=== PATIENT | female | born 1955 | race Caucasian/White ===

== ENCOUNTER → 2017-04-15 | Outpatient (CLI) | payer OTHER ==
[2017-04-15 13:23] LABS: ALBUMIN 3.5 GM/DL (3.2-5.2); ALBUMIN/GLOBULIN RATIO 1.13 (1.00-1.93); ALKALINE PHOSPHATASE 94 U/L (45-117); ALT/SGPT 79 U/L (12-78); ANION GAP 8 MEQ/L (8-16); AST/SGOT 45 U/L (15-37); BILIRUBIN,TOTAL 0.4 MG/DL (0.2-1.0); BLOOD UREA NITROGEN 18 MG/DL (7-18); CALCIUM LEVEL 9.4 MG/DL (8.8-10.2); CARBON DIOXIDE LEVEL 31 MEQ/L (21-32); CHLORIDE LEVEL 102 MEQ/L (98-107); CHOLESTEROL LEVEL 224 MG/DL (<200); CREATININE FOR GFR 0.97 MG/DL (0.55-1.02); GLOMERULAR FILTRATION RATE > 60.0 (>45); GLUCOSE, FASTING 98 MG/DL (80-110); POTASSIUM SERUM 3.7 MEQ/L (3.5-5.1); SODIUM LEVEL 141 MEQ/L (136-145); TOTAL PROTEIN 6.6 GM/DL (6.4-8.2); TRIGLYCERIDES LEVEL 256 MG/DL (<150)
== END ==
LOC: M WUC 09:38
PROVIDERS: ATTEND Nurse Practitioner Family
DX: E11.9 Type 2 diabetes mellitus without complications (principal); E03.9 Hypothyroidism, unspecified; E78.2 Mixed hyperlipidemia

== ENCOUNTER → 2017-04-22 | Outpatient (REF) | payer OTHER ==
[2017-04-22 16:36] LABS: FERRITIN 37 NG/ML (8-252); GAMMA GLUTAMYLTRANSPEPTIDASE 179 U/L (5-55)
== END ==
LOC: M SFHCPLAZ 14:06
PROVIDERS: ATTEND Nurse Practitioner Family
DX: R79.89 Other specified abnormal findings of blood chemistry (principal)

== ENCOUNTER → 2017-04-28 | Outpatient (CLI) | payer OTHER ==
--- NOTE | 2017-04-28 08:59 | REP ---
Right upper quadrant sonography: History: Elevated LFTs. Findings: Scanning through the right upper quadrant of the abdomen demonstrates a normal sized thin-walled gallbladder without evidence of stone or polyp. Common bile duct is normal measuring 0.7 cm in greatest diameter. The liver is somewhat enlarged measuring 22.8 cm in craniocaudal span in the midclavicular line. Increased echogenicity and decreased insonation suggests fatty infiltration of the liver. No focal liver lesion is seen. Limited views of the pancreas are unremarkable. There is no evidence of ascites. No significant right renal abnormality is seen. The right kidney measures 11.5 x 4.6 x 6.3 cm. Impression: Evidence of fatty infiltration of the liver and mild hepatomegaly. Otherwise negative. Signed by Adrian Carter MD 04/28/2017 09:20 A
== END ==
LOC: M RAD 08:10
PROVIDERS: ATTEND Nurse Practitioner Family
DX: R79.89 Other specified abnormal findings of blood chemistry (principal)

== ENCOUNTER 2017-06-04 09:03 | Outpatient (CLI) | payer OTHER ==
[~2017-06-04] VITALS: Ht 154.9 cm; Wt 106.1 kg
[~2017-06-04 09:03] MED LIST: AMLO5TAB2 PO; ASPI1TAB PO; ATEN100T PO; ATOR1TAB21 PO; CALC600T31 PO; HYDR25TAB PO; INDO50CA PO; LASI40TA PO; LEVO50TA5 PO; LISI40TAB PO; METF10004 PO; MICR10CA PO; MULT1TAB10 PO; TRUL0.5I SC; ZYLO300T4 PO
[2017-06-04] MEDS ORDERED: NS 1,000 ML IV ONE (10:00)
[2017-06-04] MEDS ORDERED: PROPOFOL 200 MG/20 ML VIAL As Ordered ONE (10:18)
--- NOTE | 2017-06-04 10:44 | ROOR ---
Patient Name: Silvia Hermosillo Procedure Date: 06/04/2017 10:13 AM Date of : 1955 Age: 61 Room: [facility] Gender: Female Note Status: Finalized Procedure: Colonoscopy Indications: Screening for colorectal malignant neoplasm Providers: Antonio NI MD Referring MD: Eliza Graham NP Requesting Provider: Medicines: Monitored Anesthesia Care Complications: No immediate complications. Procedure: Pre-Anesthesia Assessment: - The heart rate, respiratory rate, oxygen saturations, blood pressure, adequacy of pulmonary ventilation, and response to care were monitored throughout the procedure. The Colonoscope was introduced through the anus and advanced to the cecum, identified by appendiceal orifice and ileocecal valve. The colonoscopy was performed without difficulty. The patient tolerated the procedure well. The quality of the bowel preparation was good. Findings: The perianal and digital rectal examinations were normal. A 6 mm polyp was found in the splenic flexure. The polyp was sessile. The polyp was removed with a cold snare. Resection and retrieval were complete. A few medium-mouthed diverticula were found in the sigmoid colon. Small Internal Hemorrhoids. The exam was otherwise without abnormality on direct and retroflexion views. Impression: - One 6 mm polyp at the splenic flexure, removed with a cold snare. Resected and retrieved. - Mild diverticulosis in the sigmoid colon. - Small Internal Hemorrhoids. - The colon examination was otherwise normal on direct and retroflexion views. Recommendation: - Repeat colonoscopy in 3 years for surveillance. - Telephone endoscopist for pathology results in 2 weeks. Antonio Ni MD Antonio NI MD 06/04/2017 10:44:27 AM This report has been signed electronically. Number of Addenda: 0 Note Initiated On: 06/04/2017 10:13 AM Estimated Blood Loss: Estimated blood loss: none.
[2017-06-04 11:10] VITALS: BP 134/74
== END 2017-06-04 11:22 | disposition home or self-care (01) ==
LOC: M OPP 09:03
PROVIDERS: ATTEND Internal Medicine Gastroenterology
DX: Z12.11 Encounter for screening for malignant neoplasm of colon (principal); D12.3 Benign neoplasm of transverse colon; K57.30 Diverticulosis of large intestine without perforation or abscess without bleeding; K64.8 Other hemorrhoids; I50.9 Heart failure, unspecified; I11.0 Hypertensive heart disease with heart failure; E78.5 Hyperlipidemia, unspecified; E11.9 Type 2 diabetes mellitus without complications; M10.9 Gout, unspecified; E03.9 Hypothyroidism, unspecified; K76.89 Other specified diseases of liver; M19.90 Unspecified osteoarthritis, unspecified site; Z78.0 Asymptomatic menopausal state; R06.83 Snoring; N18.9 Chronic kidney disease, unspecified; M65.2 Calcific tendinitis; Z79.82 Long term (current) use of aspirin; Z79.899 Other long term (current) drug therapy; Z80.3 Family history of malignant neoplasm of breast

== ENCOUNTER → 2017-06-08 | Outpatient (CLI) | payer OTHER ==
[2017-06-08 14:46] LABS: ALBUMIN 3.4 GM/DL (3.2-5.2); ALKALINE PHOSPHATASE 108 U/L (45-117); ALT/SGPT 54 U/L (12-78); ANION GAP 11 MEQ/L (8-16); AST/SGOT 26 U/L (15-37); BILIRUBIN,TOTAL 0.4 MG/DL (0.2-1.0); BLOOD UREA NITROGEN 24 MG/DL (7-18); CALCIUM LEVEL 8.7 MG/DL (8.8-10.2); CARBON DIOXIDE LEVEL 31 MEQ/L (21-32); CHLORIDE LEVEL 103 MEQ/L (98-107); CHOLESTEROL LEVEL 131 MG/DL (<200); CREATININE FOR GFR 0.96 MG/DL (0.55-1.02); GLOMERULAR FILTRATION RATE > 60.0 (>45); GLUCOSE, FASTING 147 MG/DL (80-110); POTASSIUM SERUM 3.9 MEQ/L (3.5-5.1); SODIUM LEVEL 145 MEQ/L (136-145); TOTAL PROTEIN 6.5 GM/DL (6.4-8.2); TRIGLYCERIDES LEVEL 241 MG/DL (<150)
== END ==
LOC: M WUC 10:20
PROVIDERS: ATTEND Nurse Practitioner Family
DX: E78.2 Mixed hyperlipidemia (principal); R74.8 Abnormal levels of other serum enzymes; E11.9 Type 2 diabetes mellitus without complications

== ENCOUNTER → 2017-06-08 | Outpatient (CLI) | payer OTHER ==
[2017-06-08 13:37] LABS: MEAN CORPUSCULAR HEMOGLOBIN 31.9 pg (27.0-33.0); MEAN CORPUSCULAR HGB CONC 33.9 g/dl (32.0-36.5); MEAN CORPUSCULAR VOLUME 94.1 fl (80.0-96.0); RED CELL DISTRIBUTION WIDTH 14.3 % (11.5-14.5); WHITE BLOOD COUNT 6.2 K/mm3 (4.0-10.0)
[2017-06-08 13:40] LABS: INR 0.93
[2017-06-08 14:13] LABS: ALBUMIN 3.4 GM/DL (3.2-5.2); ALBUMIN/GLOBULIN RATIO 1.13 (1.00-1.93); BILIRUBIN,DIRECT 0.1 MG/DL (0.0-0.2); BILIRUBIN,TOTAL 0.4 MG/DL (0.2-1.0); PERCENT SATURATION 18.7 % (13.2-45.0); TOTAL PROTEIN 6.4 GM/DL (6.4-8.2)
== END ==
LOC: M WUC 10:24
PROVIDERS: ATTEND Physician Assistant Medical
DX: R94.5 Abnormal results of liver function studies (principal)

== ENCOUNTER → 2017-06-09 | Outpatient (REF) | payer OTHER | LOC: M SFHCWAGY 09:39 | PROVIDERS: ATTEND Nurse Practitioner Women's Health | DX: Z12.4 Encounter for screening for malignant neoplasm of cervix (principal) ==

== ENCOUNTER → 2017-06-09 | Outpatient (CLI) | payer OTHER ==
--- NOTE | 2017-06-09 10:08 | REPMRS ---
Patient History The patient states she had a clinical breast exam in 06/18 Patient is postmenopausal. Family history of breast cancer in mother at age 65. Digital Woman Screen Mammo: June 09, 2017 - Exam #: Bilateral CC and MLO view(s) were taken. Technologist: Annie Beauchamp, Technologist Prior study comparison: November 22, 2014, digital woman screen mammo performed at [facility]. October 28, 2013, right breast digital mammo diagnostic unilateral, performed at [facility]. FINDINGS: There are scattered fibroglandular densities. There has been no change in the appearance of the mammogram from the prior studies. There is a mild amount of residual fibroglandular tissue which is fairly symmetric. There is no interval development of dominant mass, architectural distortion, or clustered microcalcification suggestive of malignancy. ASSESSMENT: BI-RADS/ACR category 1 mammogram. Negative. Recommendation Routine screening mammogram in 1 year (for women over age 40). This mammogram was interpreted with the aid of an FDA-approved computer-aided dectection system. Electronically Signed By: Eamon Ryan MD 06/09/17 [id number]
== END ==
LOC: M WHC 08:56
PROVIDERS: ATTEND Nurse Practitioner Family
DX: Z12.31 Encounter for screening mammogram for malignant neoplasm of breast (principal)

== ENCOUNTER → 2017-07-19 | Outpatient (CLI) | payer OTHER ==
[2017-07-19 19:02] LABS: ALBUMIN 3.8 GM/DL (3.2-5.2); ALBUMIN/GLOBULIN RATIO 1.27 (1.00-1.93); ALKALINE PHOSPHATASE 103 U/L (45-117); ALT/SGPT 50 U/L (12-78); ANION GAP 10 MEQ/L (8-16); AST/SGOT 23 U/L (15-37); BILIRUBIN,TOTAL 0.5 MG/DL (0.2-1.0); BLOOD UREA NITROGEN 22 MG/DL (7-18); CALCIUM LEVEL 9.4 MG/DL (8.8-10.2); CARBON DIOXIDE LEVEL 31 MEQ/L (21-32); CHLORIDE LEVEL 102 MEQ/L (98-107); CREATININE FOR GFR 0.98 MG/DL (0.55-1.02); GLOMERULAR FILTRATION RATE > 60.0 (>45); GLUCOSE, FASTING 142 MG/DL (80-110); POTASSIUM SERUM 3.8 MEQ/L (3.5-5.1); SODIUM LEVEL 143 MEQ/L (136-145); TOTAL PROTEIN 6.8 GM/DL (6.4-8.2)
== END ==
LOC: M WUC 10:49
PROVIDERS: ATTEND Nurse Practitioner Family
DX: E11.9 Type 2 diabetes mellitus without complications (principal)

== ENCOUNTER → 2018-06-10 | Outpatient (CLI) | payer OTHER | LOC: M WHC 09:03 | DX: Z12.31 Encounter for screening mammogram for malignant neoplasm of breast (principal) | CPT/HCPCS: 77067 ==

== ENCOUNTER → 2018-06-10 | Outpatient (REF) | payer OTHER ==
[2018-06-12 14:10] LABS: HPV HYBRID CAPTURE II Negative (Negative)
== END ==
LOC: M SFHCWAGY 09:44
DX: Z12.4 Encounter for screening for malignant neoplasm of cervix (principal)

== ENCOUNTER 2019-03-03 12:58 | Inpatient (IN) | payer OTHER ==
[~2019-03-03] VITALS: Ht 154.9 cm; Wt 102.9 kg
[~2019-03-03 12:58] MED LIST changes: -AMLO5TAB2 PO; +AMLO5TAB6 PO; -ASPI1TAB PO; +ASPI81TA26 PO; -INDO50CA PO; +INDO50CA11 PO; -LASI40TA PO; +LASI40TA9 PO; +LISI40TA PO; -LISI40TAB PO; -ZYLO300T4 PO; +ZYLO300T6 PO
[2019-03-03] MEDS ORDERED: PANTOPRAZOLE 40MG INJ (PROTONIX) (C9113) IV ONE (13:15)
[2019-03-03] MEDS ORDERED: GI COCKTAIL 50ML BTL(HYOSCYAMINE/MAALOX/LIDOCAINE VISCOUS)(1:3:1) PO ONE (13:15)
[2019-03-03 13:39] LABS: BASO # 0.1 10^3/uL (0.0-0.2); BASO % 0.5 % (0.0-1.0); EOS % 0.3 % (0.0-3.0); LYMPH % 19.3 % (24.0-44.0); MEAN CORPUSCULAR HEMOGLOBIN 31.4 pg (27.0-33.0); MEAN CORPUSCULAR HGB CONC 32.6 g/dl (32.0-36.5); MEAN CORPUSCULAR VOLUME 96.4 fl (80.0-96.0); MONO # 0.5 10^3/uL (0.0-0.8); MONO % 4.6 % (0.0-5.0); NEUTROPHILS # 7.7 10^3/uL (1.8-7.7); NEUTROPHILS % 74.9 % (36.0-66.0); PLATELET COUNT, AUTOMATED 208 10^3/uL (150-450); RED BLOOD COUNT 4.77 10^6/uL (4.00-5.40); WHITE BLOOD COUNT 10.3 10^3/uL (4.0-10.0)
[2019-03-03 13:49] LABS: PROTHROMBIN TIME 13.3 SECONDS (12.1-14.4)
[2019-03-03 13:50] LABS: PARTIAL THROMBOPLASTIN TIME 28.5 SECONDS (25.4-37.6)
--- NOTE | 2019-03-03 14:01 | REP ---
GALLBLADDER ULTRASOUND: HISTORY: Upper abdominal pain. COMPARISON: 04/28/2017 Sludge is present in the gallbladder. There is no cholelithiasis. The gallbladder wall measures 1.9 mm. The common bile duct measures 6.1 mm. There is fatty infiltration of the liver. The liver is enlarged consistent with hepatomegaly. The pancreas is not seen due to overlying bowel gas. The right kidney measures 5.7 cm in transverse x 4.2 cm in AP x 11.2 cm in cephalocaudal dimensions. There is no hydronephrosis or mass. There is no free fluid. IMPRESSION: 1. Gallbladder sludge. 2. Fatty liver and hepatomegaly. Electronically Signed by Garret Manning MD 03/03/2019 02:04 P
--- NOTE | 2019-03-03 14:07 | REP ---
Chest two views HISTORY: shortness of breath Comparison: 08/02/2012 The lungs are clear. The heart is normal in size. The pulmonary vasculature is normal in appearance. The bony structure is intact. IMPRESSION: No acute disease. Electronically Signed by Garret Manning MD 03/03/2019 01:59 P
[2019-03-03 14:13] LABS: CPK CREATINE PHOSPHOKINASE 123 U/L (26-192); MB/CK RELATIVE INDEX 2.11 (< OR =4); TROPONIN I < 0.02 NG/ML (< 0.10)
[2019-03-03 16:39] LABS: ALBUMIN 4.3 GM/DL (3.2-5.2); BILIRUBIN,DIRECT 0.1 MG/DL (0.0-0.2); BILIRUBIN,TOTAL 0.5 MG/DL (0.2-1.0); CALCIUM LEVEL 12.4 MG/DL (8.8-10.2); CREATININE FOR GFR 1.72 MG/DL (0.55-1.30); POTASSIUM SERUM 7.5 MEQ/L (3.5-5.1); TOTAL PROTEIN 8.9 GM/DL (6.4-8.2)
[2019-03-03] MEDS ORDERED: NS 1,000 ML IV ONE (16:45)
[2019-03-03] MEDS ORDERED: CALCIUM GLUCONATE 1,000 MG in D5W MINI-BAG PLUS 100 ML IV ONE (17:00)
[2019-03-03] MEDS ORDERED: DEXTROSE 50% 50 ML SYRINGE IV STA ×2 (17:10→20:58)
[2019-03-03] MEDS ORDERED: PATIROMER SORBITEX CALCIUM 8.4 GM POWDER PACKET (VELTASSA) PO ONE ×2 (17:15→20:15)
[2019-03-03] MEDS ORDERED: HumuLIN R (REGULAR) INSULIN (NovoLIN R) **100U/ML** PER UNIT IV ONE (17:15)
--- NOTE | 2019-03-03 17:30 | REP ---
CT ABDOMEN AND PELVIS WITHOUT IV CONTRAST: CT abdomen and pelvis performed without oral or IV contrast. Sagittal and coronal reconstruction images are performed. Comparison made with prior CT of 05/14/2015. The visualized lung bases demonstrate no evidence of infiltrate. The liver demonstrates diffuse fatty infiltration. Gallbladder is grossly unremarkable. Spleen and right adrenal are grossly unremarkable. Left adrenal again demonstrates a large fatty mass, well circumscribed, measuring approximately 12.7 cm in maximum diameter. This is essentially stable compared to the prior CT and is most consistent with a myelolipoma. Pancreas and kidneys are grossly unremarkable. There is no hydronephrosis or nephrolithiasis. There is atherosclerotic calcification of the abdominal aorta without aneurysm. There is no adenopathy. There is no free air or free fluid. There is no bowel wall thickening. There is no evidence of appendicitis. No pelvic mass is seen. Urinary bladder is not well distended and not well evaluated. There are degenerative changes of the spine. IMPRESSION: No acute abnormalities. No evidence of appendicitis, free air or free fluid. Large left adrenal myelolipoma is essentially unchanged since the prior exam of 2014. There is a small left inguinal hernia containing fat. Electronically Signed by Eamon Ryan MD 03/04/2019 12:53 P
[2019-03-03] MEDS ORDERED: CALCCAP4 PO (17:34)
[2019-03-03] MEDS ORDERED: ATEN100T PO (17:34)
[2019-03-03] MEDS ORDERED: SPIR50TA4 PO (17:34)
[2019-03-03] MEDS ORDERED: VITMTA PO (17:34)
[2019-03-03] MEDS ORDERED: GABA-843 PO (17:34)
[2019-03-03] MEDS ORDERED: POTA20TA6 PO (17:34)
[2019-03-03] MEDS ORDERED: SODIUM BICARBONATE 150 MEQ in STERILE WATER LITER BAG 1,000 ML IV SCH (18:00)
[2019-03-03 18:22] LABS: ABG BASE EXCESS -11.3 (-2.0-2.0); ABG HCO3 13.8 MEQ/L (22.0-26.0); ABG O2 SATURATION 96.6 % (95.0-99.0); ABG PARTIAL PRESSURE CO2 29.3 mmHg (35.0-45.0); ABG PARTIAL PRESSURE O2 91.8 mmHg (75.0-100.0); ABG STANDARD HCO3 15.7 MEQ/L (22.0-26.0); ABG TOTAL CO2 14.7 MEQ/L (23.0-31.0)
[2019-03-03 19:00] VITALS: BP 128/58
[2019-03-03 19:00] LABS: THYROID STIMULATING HORMONE 2.57 uIU/ML (0.358-3.740)
[2019-03-03 19:02] LABS: CORTISOL BASELINE 14.7 UG/DL (4.3-22.4)
[2019-03-03 19:59] LABS: CALCIUM LEVEL 11.4 MG/DL (8.8-10.2); CREATININE FOR GFR 1.68 MG/DL (0.55-1.30); GLOMERULAR FILTRATION RATE 32.9 (>45); POTASSIUM SERUM 7.2 MEQ/L (3.5-5.1)
[2019-03-03 20:57] LABS: HEMOGLOBIN A1c 6.8 %
[2019-03-03] MEDS ORDERED: ALBUTEROL SULFATE 2.5 MG/0.5 ML INH NEB SOLN NEB ONE (20:58)
[2019-03-03] MEDS ORDERED: HumuLIN R (REGULAR) INSULIN (NovoLIN R) **100U/ML** PER UNIT IV STA (20:58)
[2019-03-03 21:18] LABS: URINE TOTAL PROTEIN < 5.0 MG/DL (0-12)
[2019-03-03] MEDS: ALBUTEROL SULFATE 2.5 MG/0.5 ML INH NEB SOLN NEB SCH ×2 (21:34→21:35)
[2019-03-03] MEDS: GABAPENTIN 300 MG CAP PO SCH (21:53)
[2019-03-03] MEDS: PATIROMER SORBITEX CALCIUM 8.4 GM POWDER PACKET (VELTASSA) PO SCH (21:53)
[2019-03-03] MEDS: ALLOPURINOL 300 MG TAB PO SCH (21:53)
[2019-03-03 22:00] VITALS: BP 120/56
--- NOTE | 2019-03-03 22:19 | ECGEPIP ---
Stationary ECG Study [facility] - ED Test Date: 2019-03-03 Pat Name: BLANCA TARIQ Department: Room: - Gender: F Forensic Nurse: efrem : 1955 Requested By: INOCENCIO Meza Order Number: [id number] Reading MD: Tahmina Billings Measurements Intervals [place]ton Rate: 54 P: -13 MD: 151 QRS: -16 QRSD: 95 T: 33 QT: 389 QTc: 371 Interpretive Statements SINUS BRADYCARDIA PRWP NSTTW ABNORMALITY Electronically Signed On 03-03-2019 22:19:27 EDT by Tahmina Billings
--- NOTE | 2019-03-03 22:23 | HPE ---
DATE OF ADMISSION: 03/03/2019 CHIEF COMPLAINT: Abdominal pain, nausea, diarrhea, muscle weakness. HISTORY OF THE PRESENT ILLNESS: This is a 63-year-old female with a past medical history significant for hypertriglyceridemia, hypertension, morbid obesity, type 2 diabetes, hypothyroidism, congestive heart failure with preserved ejection fraction, mild left atrial enlargement, mild tricuspid regurgitation, gout, chronic kidney disease stage III, chronic hypokalemia, presents to the emergency room after seeing her primary care physician at the office, Marine Ceja at the [facility] with complaints of weakness and abdominal pain. Patient was in her usual state of health until about a week ago when she developed upper respiratory infection with cough, cold symptoms, nasal congestion and runny nose, at which point it progressed to nausea and diarrhea, up to about 10 times daily. She had no fever but had some chills and felt cold, prompting her to see her primary care physician, who advised her that this was a viral infection. Patient has been taking 12 tablets of potassium supplements for the past 1 year. She gets serum potassium checked every 2-3 months, which have been stable, according to her physician. No changes have been made. When she was seen today at her doctor's office, the patient complained of pain at the top of her stomach, which was radiating to her chest, felt like heartburn, which has worsened in the past 2 days, accompanied with some nausea without vomiting and weakness, especially when she has been sitting for about 20 minutes, difficulty ambulating and using her hands to get up from a sitting or lying down position, and requiring assistance from her . Patient was exposed to her brother who had upper respiratory infection (URI) symptoms for the past week. She had a decrease in oral intake due to her upset stomach, felt dizzy and lightheaded without any palpitations. Her provider encouraged her to continue with eating applesauce, soups and peanut butter at home. She continued to take her lisinopril, potassium supplements and Lasix at home. Due to significant weakness and now with complaints of chest pains, the patient was encouraged to come to the emergency room straight from her doctor's office. In the emergency room (ER), she was found to have hyperkalemia with a potassium level of 7.5, hypercalcemia 12, creatinine of 1.7 with baseline creatinine, which is normal at 0.98 from 2017. Patient was afebrile but had normal blood pressure 134 but decreased to 75/43 within 3 hours. Hospitalist was called to admit for hyperkalemia, acute kidney injury, and metabolic acidosis. PAST MEDICAL HISTORY: Hypothyroidism. Obesity. Hyperlipidemia. Type 2 diabetes. Congestive heart failure with preserved ejection fraction. Mild left atrial enlargement. Trace to mild tricuspid regurgitation. Gout. Chronic kidney disease stage III. SURGICAL HISTORY: Tubal ligation in 1993. Colonoscopy in 2017. HOME MEDICATIONS: Please see below. ALLERGIES: No known drug allergies. FAMILY HISTORY: Father , age 63, of heart failure, coronary artery disease and bypass surgery, diabetes and hypertension. Mother alive, age 84, with hypothyroidism, history of breast cancer, in her early 60s, status post hip replacement. Sister had knee problems, hypertension, hyperlipidemia. Brother hypertension and seizure disorder. Another brother is healthy. Son is alive and doing well. SOCIAL HISTORY: Patient was a former smoker. 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 Denies any alcohol use currently or any history of alcohol abuse in the past. REVIEW OF SYSTEMS: Per history of the present illness. Twelve point system otherwise negative. PHYSICAL EXAMINATION: Temperature is 97.4, pulse is sinus 52-67, respiratory rate 17, blood pressure on arrival to the ER was 134/69, current blood pressure is 86/49, at the bedside it is 122 after one liter of IV fluid bolus. General: Patient is awake, alert, oriented times three, able to provide much of the history. She is anicteric. No respiratory distress, able to speak in full sentences. Pupils are round and reactive to light and accommodation. Extraocular muscles are intact. Normocephalic, atraumatic. No jugular venous distention, thyromegaly or cervical lymphadenopathy. Dry mucous membranes. Lungs are diminished but clear to auscultation. There is no wheezing, rales, or rhonchi. Heart: S1, S2, sinus bradycardia. No murmurs, rubs, or gallops. Abdomen: Obese, soft, slightly tender in the epigastric region. No rebound, guarding. Positive bowel sounds times four quadrants. Extremities: No cyanosis, clubbing, or any pitting edema. LABORATORY DATA: White count 10.3, hemoglobin 15, hematocrit 46, platelet count 208. Sodium 138, potassium 7.5, bicarbonate 18, chloride 115, BUN 42, creatinine 1.72, glucose of 139, lactic acid is pending. Calcium is 12.4. Total bilirubin is 0.5, direct bilirubin is 0.1. AST is 34, ALT is 69, alkaline phosphatase of 143. Total protein of 8.9, albumin of 4.3, albumin-globulin ratio of 1.93. Microbiology: Urinalysis is pending. Blood culture is pending. Chest x-ray, 03/03/2019: No acute disease. CT abdomen and pelvis: No acute abnormalities. No evidence of appendicitis. Large left adrenal myolipoma, unchanged from prior exam. Small left inguinal hernia containing fat. Gallbladder ultrasound: Gallbladder sludge and fatty liver and hepatomegaly. ASSESSMENT AND PLAN: Patient will be admitted as an inpatient for two midnights for the following issues: Acute hyperkalemia. Most likely related to continued lisinopril use as well as potassium supplementation. At this time, the patient's lisinopril will be discontinued. She has been given Veltassa q4h as well a sodium bicarbonate drip with every 4 hour metabolic panel, as well as ionized calcium check while the patient is on bicarbonate drip. She has been admitted to the intensive care unit (ICU) for critical patient monitoring and telemetry. Her EKG on admission shows sinus bradycardia, ventricular rate of 54, OK interval of 151, QRS of 95, QT of 389, QTc of 376. Hypercalcemia with renal failure . check PTH, phosphate, vitamin D,SPEP, UPEP, urinary calcium. telemetry monitoring. calcitonin, zolendronate. nephrology consult. CXR was clear. Acute metabolic acidosis in the setting of renal failure and acute kidney injury with a creatinine of 1.72. Patient will be receiving bicarbonate drip and BMP every 4 hours for adjustment of IV fluids. Check urine electrolytes . Hypotension. Patient did arrive with normal blood pressure of 134/69, currently in the 80s systolic. Patient did receive IV fluids, and she was taking Lasix, lisinopril ,beta pushpa as an outpatient prior to coming in with recent history of hypovolemia from diarrhea. Patient had been supplemented with normal saline IV boluses and bicarbonate drip for now. Blood cultures, urinalysis (UA) have been obtained. Chest x-ray has no acute disease. CT abdomen unremarkable . No empiric antibiotics for now. If concerns for adrenal insufficiency were to occur, will continue with IV fluids and determine further workup after that time. Type 2 diabetes . clears diet for now ue to patient complaints of persistent diarrhea, check a gastrointestinal (GI) panel. Subcu sliding scale with coverage with fingersticks before food and nightly. Patient will be monitored in the ICU for now. History of Hypertension. Will hold all antihypertensive medications in light of current low blood pressure. Acute renal failure in the setting of hypovolemia from diarrhea as well as continued lisinopril use, as well as diuretic use. Will replenish patient's fluids at this time. Monitor for any signs of infection. Check UA, chest x-ray. Renally dose all medications and no signs of obstruction on the CT abdomen of the kidneys. Due to hypercalcemia, will r/o multiple myeloma. check upep,spep Obesity. Complicating care. Congestive heart failure (CHF) with preserved ejection fraction. Will monitor patient's respiratory status. Currently with clear lungs and chest x-ray has no acute disease. Abnormal EKG with sinus bradycardia in the setting of severe hypercalcemia and recent use of beta blockers. if persistent, may need glucagon. Telemetry monitoring for now. The patient has borderline prolonged QTc. Will supplement magnesium if low. Deep vein thrombosis (DVT) prophylaxis with compression stockings. Muscle weakness secondary to electrolyte abnormalities and significant metabolic acidosis. correct electrolytes. Physical therapy (PT) will be consulted. CODE STATUS: FULL CODE. MTDD
[2019-03-03 22:43] LABS: TOTAL PROTEIN 7.4 GM/DL (6.4-8.2)
[2019-03-03 22:59] LABS: CALCIUM LEVEL 11.3 MG/DL (8.8-10.2); CREATININE FOR GFR 1.58 MG/DL (0.55-1.30); GLOMERULAR FILTRATION RATE 35.3 (>45)
[2019-03-03] MEDS ORDERED: FLUBLOK(EGG FREE)(QUAD)INFLUENZA VACC 0.5ML SYRINGE (90682)18YRS&OLDER IM PRN (23:15)
[2019-03-04] VITALS (14 sets, daily range): BP systolic 82–131; BP diastolic 51–68
[2019-03-04] MEDS: PATIROMER SORBITEX CALCIUM 8.4 GM POWDER PACKET (VELTASSA) PO SCH (00:35)
[2019-03-04] MEDS ORDERED: SODIUM BICARBONATE 150 MEQ in STERILE WATER LITER BAG 1,000 ML IV SCH (01:00)
[2019-03-04] MEDS ORDERED: PATIROMER SORBITEX CALCIUM 8.4 GM POWDER PACKET (VELTASSA) PO SCH ×2 (02:00→09:00)
[2019-03-04 02:14] LABS: CALCIUM LEVEL 11.6 MG/DL (8.8-10.2); CREATININE FOR GFR 1.6 MG/DL (0.55-1.30); GLOMERULAR FILTRATION RATE 34.8 (>45); POTASSIUM SERUM 5.8 MEQ/L (3.5-5.1)
[2019-03-04] MEDS ORDERED: NS 1,000 ML IV ONE ×2 (05:30→06:30)
[2019-03-04] MEDS: LEVOTHYROXINE 50MCG TABLET (0.05MG) PO SCH (05:58)
[2019-03-04] MEDS ORDERED: ZOLEDRONIC ACID 3 MG in D5W 100 ML IV ONE (06:00)
[2019-03-04 06:03] LABS: HEMATOCRIT 36.1 % (36.0-47.0); MEAN CORPUSCULAR HEMOGLOBIN 31.2 pg (27.0-33.0); MEAN CORPUSCULAR HGB CONC 33.5 g/dl (32.0-36.5); PLATELET COUNT, AUTOMATED 143 10^3/uL (150-450); RED BLOOD COUNT 3.88 10^6/uL (4.00-5.40); WHITE BLOOD COUNT 7.8 10^3/uL (4.0-10.0)
[2019-03-04 06:07] LABS: HEMOGLOBIN 12.1 g/dl (12.0-15.5)
[2019-03-04 06:30] LABS: CALCIUM LEVEL 10.9 MG/DL (8.8-10.2); CREATININE FOR GFR 1.27 MG/DL (0.55-1.30); GLOMERULAR FILTRATION RATE 45.4 (>45); POTASSIUM SERUM 5.2 MEQ/L (3.5-5.1)
[2019-03-04] MEDS ORDERED: MULTIVITAMINS/MINERALS THERAP 1 TAB PO SCH (09:00)
[2019-03-04] MEDS ORDERED: CALCITONIN NASAL SPRAY 3.7 ML BTL SCH (09:00)
[2019-03-04 09:18] LABS: PTH INTACT 9.9 PG/ML (18.5-88.0); TOTAL 25(OH) VITAMIN D 36.3 NG/ML (30.0-100.0)
[2019-03-04] MEDS: ALLOPURINOL 300 MG TAB PO SCH ×2 (09:33→22:25)
[2019-03-04] MEDS: ATORVASTATIN 20 MG TAB PO SCH (09:33)
[2019-03-04 10:23] LABS: CALCIUM LEVEL 9.7 MG/DL (8.8-10.2); CREATININE FOR GFR 1.28 MG/DL (0.55-1.30); POTASSIUM SERUM 4.9 MEQ/L (3.5-5.1)
[2019-03-04 12:39] LABS: CALCIUM LEVEL 9.9 MG/DL (8.8-10.2); CREATININE FOR GFR 1.18 MG/DL (0.55-1.30); GLOMERULAR FILTRATION RATE 49.4 (>45); POTASSIUM SERUM 5.1 MEQ/L (3.5-5.1)
[2019-03-04 13:22] LABS: CREATININE,RANDOM URINE 20.4 MG/DL; POTASSIUM RANDOM URINE 16.9 MEQ/L
--- NOTE | 2019-03-04 14:28 | IPNPDOC ---
Date Seen The patient was seen on 03/04/19. Progress Note SUBJECTIVE: no new c/o. abd pain is resolved. no new issues overnight aside from multiple bowel movements from veltassa. k5.1 this am. strength is improved. calcium increased s/p ivfluids, zolendronate and calcitonin. upep spep pending PHYSICAL EXAMINATION: VITALS PLS SEE BELOW General: Patient is awake, alert, oriented times three, able to provide much of the history. She is anicteric. No respiratory distress, able to speak in full sentences. Pupils are round and reactive to light and accommodation. Extraocular muscles are intact. Normocephalic, atraumatic. No jugular venous distention, thyromegaly or cervical lymphadenopathy. Dry mucous membranes. Lungs are diminished but clear to auscultation. There is no wheezing, rales, or rhonchi. Heart: S1, S2, sinus bradycardia. No murmurs, rubs, or gallops. Abdomen: Obese, soft, slightly tender in the epigastric region. No rebound, guarding. Positive bowel sounds times four quadrants. Extremities: No cyanosis, clubbing, or any pitting edema. LABORATORY DATA ON ADMISSION: White count 10.3, hemoglobin 15, hematocrit 46, platelet count 208. Sodium 138, potassium 7.5, bicarbonate 18, chloride 115, BUN 42, creatinine 1.72, glucose of 139, lactic acid is pending. Calcium is 12.4. Total bilirubin is 0.5, direct bilirubin is 0.1. AST is 34, ALT is 69, alkaline phosphatase of 143. Total protein of 8.9, albumin of 4.3, albumin-globulin ratio of 1.93. PLS SEE BELOW Microbiology: Urinalysis is pending. Blood culture is pending. Chest x-ray, 03/03/2019: No acute disease. CT abdomen and pelvis: No acute abnormalities. No evidence of appendicitis. Large left adrenal myolipoma, unchanged from prior exam. Small left inguinal hernia containing fat. Gallbladder ultrasound: Gallbladder sludge and fatty liver and hepatomegaly. ASSESSMENT AND PLAN: This is a 63-year-old female with a past medical history significant for hypertriglyceridemia, hypertension, morbid obesity, type 2 diabetes, hypothyroidism, congestive heart failure with preserved ejection fraction, mild left atrial enlargement, mild tricuspid regurgitation, gout, chronic kidney disease stage III, chronic hypokalemia, presents to the emergency room after seeing her primary care physician at the office, Marine Ceja at the [facility] with complaints of weakness and abdominal pain. Patient was in her usual state of health until about a week ago when she developed upper respiratory infection with cough, cold symptoms, nasal congestion and runny nos e, at which point it progressed to nausea and diarrhea, up to about 10 times daily. She had no fever but had some chills and felt cold, prompting her to see her primary care physician, who advised her that this was a viral infection. Patient has been taking 12 tablets of potassium supplements for the past 1 year. She gets serum potassium checked every 2-3 months, which have been stable, according to her physician. No changes have been made. When she was seen today at her doctor's office, the patient complained of pain at the top of her stomach, which was radiating to her chest, felt like heartburn, which has worsened in the past 2 days, accompanied with some nausea without vomiting and weakness, especially when she has been sitting for about 20 minutes, difficulty ambulating and using her hands to get up from a sitting or lying down position, and requiring assistance from her . Patient was exposed to her brother who had upper respiratory infection (URI) symptoms for the past week. She had a decrease in oral intake due to her upset stomach, felt dizzy and lightheaded without any palpitations. Her provider encouraged her to continue with eating applesauce, soups and peanut butter at home. She continued to take her lisinopril, potassium supplements and Lasix at home. Due to significant weakness and now with complaints of chest pains, the patient was encouraged to come to the emergency room straight from her doctor's office. In the emergency room (ER), she was found to have hyperkalemia with a potassium level of 7.5, hypercalcemia 12, creatinine of 1.7 with baseline creatinine, which is normal at 0.98 from 2017. Patient was afebrile but had normal blood pressure 134 but decreased to 75/43 within 3 hours. Hospitalist was called to admit for hyperkalemia, acute kidney injury, and metabolic acidosis. Acute hyperkalemia. Most likely related to continued lisinopril use as well as potassium supplementation. At this time, the patient's lisinopril will be discontinued. She has been given Veltassa q4h as well a sodium bicarbonate drip with every 4 hour metabolic panel, as well as ionized calcium check while the patient is on bicarbonate drip. She has been admitted to the intensive care unit (ICU) for critical patient monitoring and telemetry. Her EKG on admission shows sinus bradycardia, ventricular rate of 54, OK interval of 151, QRS of 95, QT of 389, QTc of 376. Hypercalcemia with renal failure . check PTH, phosphate, vitamin D,SPEP, UPEP, urinary calcium. telemetry monitoring. calcitonin, zolendronate. nephrology consult. CXR was clear. Acute metabolic acidosis in the setting of renal failure and acute kidney injury with a creatinine of 1.72. Patient will be receiving bicarbonate drip and BMP every 4 hours for adjustment of IV fluids. Check urine electrolytes . Hypotension. Patient did arrive with normal blood pressure of 134/69, currently in the 80s systolic. Patient did receive IV fluids, and she was taking Lasix, lisinopril ,beta pushpa as an outpatient prior to coming in with recent history of hypovolemia from diarrhea. Patient had been supplemented with normal saline IV boluses and bicarbonate drip for now. Blood cultures, urinalysis (UA) have been obtained. Chest x-ray has no acute disease. CT abdomen unremarkable . No empiric antibiotics for now. If concerns for adrenal insufficiency were to occur, will continue with IV fluids and determine further workup after that time. Type 2 diabetes . clears diet for now ue to patient complaints of persistent diarrhea, check a gastrointestinal (GI) panel. Subcu sliding scale with coverage with fingersticks before food and nightly. Patient will be monitored in the ICU for now. History of Hypertension. Will hold all antihypertensive medications in light ofcurrent low blood pressure. Acute renal failure in the setting of hypovolemia from diarrhea as well as continued lisinopril use, as well as diuretic use. Will replenish patient's fluids at this time. Monitor for any signs of infection. Check UA, chest x-ray. Renally dose all medications and no signs of obstruction on the CT abdomen of the kidneys. Due to hypercalcemia, will r/o multiple myeloma. check upep,spep Obesity. Complicating care. Congestive heart failure (CHF) with preserved ejection fraction. Will monitor patient's respiratory status. Currently with clear lungs and chest x-ray has no acute disease. Abnormal EKG with sinus bradycardia in the setting of severe hypercalcemia and recent use of beta blockers. if persistent, may need glucagon. Telemetry monitoring for now. The patient has borderline prolonged QTc. Will supplement magnesium if low. Deep vein thrombosis (DVT) prophylaxis with compression stockings. Muscle weakness secondary to electrolyte abnormalities and significant metabolic acidosis. correct electrolytes. Physical therapy (PT) will be consulted. CODE STATUS: FULL CODE. DISPOSITION: STABLE FOR MEDSURG TRANSFER. DC IN AM. A-FIB/CHADSVASC A-FIB History Current/History of A-Fib/PAF?: No Current Oral Anticoagulant The: No VS, I&O, 24H, Fishbone Vital Signs/I&O Vital Signs Date Time Temp Pulse Resp B/P (MAP) Pulse Ox O2 Delivery O2 Flow Rate FiO2 03/04/19 12:00 97.4 82 18 113/62 (79) 95 03/03/19 13:11 Room Air I&O- Last 24 Hours up to 6 AM 03/04/19 05:59 Intake Total 2440 ml Output Total 850 ml Balance 1590 ml Laboratory Data 24H LABS Laboratory Tests 2 03/03/19 15:58: Anion Gap 5L, Glomerular Filtration Rate 32.0L, Calcium Level 12.4H, Aspartate Amino Transf (AST/SGOT) 34, Alanine Aminotransferase (ALT/SGPT) 69, Alkaline Phosphatase 143H, Total Bilirubin 0.5, Direct Bilirubin 0.1, Total Protein 8.9H, Albumin 4.3, Albumin/Globulin Ratio 0.93L, Lipase 195 03/03/19 16:51: POC Glucose (Misc Panel) 136H, POC Sodium (Misc Panel) 137, POC Potassium (Misc Panel) 8.5*H, POC Chloride (Misc Panel) 117H, POC Total CO2 (Misc Panel) 18.0L, POC Blood Urea Nitrogen (Misc Panel 41H, POC Ionized Calcium (Misc Panel) 6.6H, POC Creatinine (Misc Panel) 1.7H, POC Hematocrit (Misc Panel) 43.0 03/03/19 18:10: Blood Gas Bicarbonate Standard 15.7L, Arterial Blood pH 7.290L, Arterial Blood Partial Pressure CO2 29.3L, Arterial Blood Partial Pressure O2 91.8, Arterial Blood Total CO2 14.7L, Arterial Blood HCO3 13.8L, Arterial Blood Base Excess - 11.3L, Arterial Blood Oxygen Saturation 96.6 03/03/19 18:23: Anion Gap 4L, Glomerular Filtration Rate 32.9L, Calcium Level 11.4H, Lactic Acid Level 2.4*H, Blood Urea Nitrogen 44H, Creatinine 1.68H, Sodium Level 138, Pota ssium Level 7.2*H, Chloride Level 115H, Carbon Dioxide Level 19L, Thyroid Stimulating Hormone (TSH) 2.570, Cortisol Baseline 14.7 03/03/19 19:02: Bedside Glucose (Misc Panel) 122H 03/03/19 20:16: Urine Color STRAW, Urine Appearance CLEAR, Urine pH 5.0, Urine Specific [place] 1.008, Urine Protein NEGATIVE, Urine Glucose (UA) NEGATIVE, Urine Ketones NEGATIVE, Urine Blood NEGATIVE, Urine Nitrite NEGATIVE, Urine Bilirubin NEGATIVE, Urine Urobilinogen 0.2, Urine Leukocyte Esterase 1+H, Urine WBC (Auto) 5H, Urine RBC (Auto) 0, Urine Hyaline Casts (Auto) 0, Urine Bacteria (Auto) NEGATIVE, Urine Squamous Epithelial Cells 1, Urine Mucus (Auto) SMALL, Urine Sperm (Auto) , Urine Total Protein mg/dL < 5.0 03/03/19 22:01: Anion Gap 4L, Glomerular Filtration Rate 35.3L, Blood Urea Nitrogen 42H, Creatinine 1.58H, Sodium Level 139, Potassium Level 7.0*H, Chloride Level 112H, Carbon Dioxide Level 23, Calcium Level 11.3H, Whole Blood Ionized Calcium 6.0H, Total Protein (PEP) 7.4 03/03/19 22:43: Lactic Acid Followup at 4 Hours 1.8 03/03/19 23:12: Bedside Glucose (Misc Panel) 179H 03/04/19 01:49: Anion Gap 6L, Glomerular Filtration Rate 34.8L, Blood Urea Nitrogen 35H, Creatinine 1.60H, Sodium Level 137, Potassium Level 5.8H, Chloride Level 107, Carbon Dioxide Level 24, Calcium Level 11.6H, Whole Blood Ionized Calcium 5.9H 03/04/19 05:52: Anion Gap 7L, Glomerular Filtration Rate 45.4, Blood Urea Nitrogen 34H, Creatinine 1.27, Sodium Level 136, Potassium Level 5.2H, Chloride Level 105, Carbon Dioxide Level 24, Calcium Level 10.9H, Whole Blood Ionized Calcium 5.6H, Nucleated Red Blood Cells % (auto) 0.0, Phosphorus Level 5.0H, 25-Hydroxy Vitamin D Total 36.3, Parathyroid Hormone (Intact) 9.9L 03/04/19 09:44: Anion Gap 6L, Glomerular Filtration Rate 45.0, Blood Urea Nitrogen 27H, Creatinine 1.28, Sodium Level 139, Potassium Level 4.9, Chloride Level 109H, Carbon Dioxide Level 24, Calcium Level 9.7, Whole Blood Ionized Calcium 5.3 03/04/19 12:02: Anion Gap 8, Glomerular Filtration Rate 49.4, Blood Urea Nitrogen 26H, Creatinine 1.18, Sodium Level 139, Potassium Level 5.1, Chloride Level 110H, Carbon Dioxide Level 21, Calcium Level 9.9, Whole Blood Ionized Calcium 5.2 03/04/19 12:43: Urine Random Creatinine 20.4, Urine Random Sodium 50, Urine Random Potassium 16.9, Urine Random Chloride 61 CBC/BMP Laboratory Tests 03/03/19 15:58 03/03/19 18:23 Calcium Level 11.4 H 03/03/19 22:01 Calcium Level 11.3 H 03/04/19 01:49 Calcium Level 11.6 H 03/04/19 05:52 Red Blood Count 3.88 L, Mean Corpuscular Volume 93.0, Mean Corpuscular Hemoglobin 31.2, Mean Corpuscular Hemoglobin Concent 33.5, Red Cell Distribution Width 13.9, Calcium Level 10.9 H 03/04/19 09:44 Calcium Level 9.7 03/04/19 12:02 Calcium Level 9.9 Microbiology Microbiology 03/03/19 Blood Culture, Received Pending 03/04/19 Gastrointestinal Tract Panel (PCR) - Final, Complete 03/03/19 MRSA Screen, Resulted Pending 03/03/19 Respiratory Virus Panel (PCR) (SOLO) - Final, Resulted 03/03/19 Urine Culture - Final, Complete SVITLANA HUYNH MD March 04, 2019 14:28
--- NOTE | 2019-03-04 14:36 | CR ---
DATE OF CONSULTATION: 03/04/2019 REQUESTING PHYSICIAN: Dr. Andree Cordova. ATTENDING PHYSICIAN: Dr. Pinedo. REASON FOR CONSULTATION: Management of acute renal failure, hyperkalemia and hypercalcemia. CHIEF COMPLAINT: Patient presented to the hospital yesterday with abdominal pain, nausea, vomiting and diarrhea along with muscle weakness. HISTORY OF PRESENT ILLNESS: Silvia Hermosillo is a 63-year-old female with past medical history of hypertension, type 2 diabetes, history of congestive heart failure, apparently has a normal renal function, baseline creatinine of around 0.9 about two years ago in our records. She does not followup with nephrology. She follows up with her primary care at the [facility] ([place]). She presented to the hospital yesterday with a one week history of diarrhea, nausea, vomiting, feeling weak, tired and fatigued. She reports that she possibly had a stomach bug that everybody else is having. She kept on taking all of her medication despite having the diarrhea. On initial triage, the patient was found to be in acute renal failure with a creatinine of 1.7. She was hyperkalemic with a potassium of 7.5. She was in metabolic acidosis and she was also hypercalcemic with a calcium of 12.4 on arrival. Patient was admitted to intensive care unit (ICU) under the hospitalist service. She was started on intravenous (IV) fluid hydration. Nephrotoxic medications are held. Nephrology service was called today with further help in the management of this patient's hyperkalemia and persistent hypercalcemia. I saw and evaluated the patient today morning in the ICU. Patient reports that she is feeling much better today as compared with yesterday. She is beginning to make more urine now. Renal function is slowly improving. Patient reports that she takes 120 mEq of potassium at home because she is always hypokalemic with diuretics that she is receiving. She has never followed up further with nephrology for management of the electrolytes. Patient is currently not on any intravenous (IV) fluid. She was given fluid boluses overnight. PAST MEDICAL HISTORY: 1. Diabetes mellitus type 2. 2. Hypertension. 3. History of heart failure with preserved ejection fraction. 4. Hypothyroidism. 5. Chronic gout. 6. Questionable history of chronic kidney disease stage III; however, in our records her creatinine two years ago was 0.9. PAST SURGICAL HISTORY: 1. History of tubal ligation in 1989. 2. History of colonoscopy. ALLERGIES: No known drug allergies. FAMILY HISTORY: No significant family history of low potassium or periodic paralysis. There is positive family history of hypertension and hyperlipidemia along with diabetes. SOCIAL HISTORY: Patient is retired. She denies any illicit drug abuse, smoking or alcohol abuse. She is living with her . REVIEW OF SYSTEMS: CONSTITUTIONAL: Patient reported weakness and fatigue when she arrived, but she reports that she is feeling better today. She denies any fevers and chills. EYES: She denies any blurry vision, double vision. ENT: She denies any dysphagia or odynophagia. CARDIOVASCULAR: She denies any chest pain or palpitations, but she does report history of lower extremity edema. RESPIRATORY: She denies any shortness of breath. GASTROINTESTINAL (GI): She has nausea, vomiting and diarrhea on arrival which is better now. GENITOURINARY: She denies any dysuria or hematuria. MUSCULOSKELETAL: She denies any muscle weakness at this point. SKIN: She denies any skin rashes or ulcers. PSYCHIATRIC: She denies any depression or anxiety. ENDOCRINE: She reports history of diabetes mellitus and hypothyroidism. HEMATOLOGY/ONCOLOGY: She denies any easy bleeding or bruising. All other review of systems is negative. PHYSICAL EXAMINATION: GENERAL: The patient is awake, alert, oriented times three, laying in bed in no apparent distress. VITAL SIGNS: Temperature is 97.6 degrees Fahrenheit, blood pressure 115/68, pulse is 76, respiratory rate of 20, saturating 95% on room on room air; however, on arrival patient was hypotensive with blood pressures in 70s-80s. HEAD AND NECK EXAM: Extraocular muscles intact. Pupils equally round and reactive to light. Mucous membranes are moist. Neck is supple. There is no jugular venous distention (JVD). CARDIOVASCULAR: S1, S2. Regular rate. No edema of the bilateral lower extremities. RESPIRATORY: Chest is clear to auscultation bilaterally. Bilateral equal air entry. No rales or rhonchi. ABDOMEN: Soft, obese. Positive bowel sounds. Nontender. No organomegaly. MUSCULOSKELETAL: No clubbing or cyanosis. Pulses are 2+. CENTRAL NERVOUS SYSTEM ([employer]): No focal deficit. Power is 5/5 in all extremities. SKIN: No rashes or ulcers. PSYCHIATRIC: Normal mood and affect. LABORATORY REVIEW: Complete blood count (CBC) showed a WBC of 10.3, hemoglobin 15, platelets 208 On arrival INR is 1. Urinalysis done on arrival showed a specific gravity of 1.008, pH of 5, 1+ leukocyte esterase, no protein, no blood. Arterial blood gas (ABG) done on arrival showed a pH of 7.29, pCO2 of 29, pO2 of 91, bicarbonate was 13.8, oxygen saturation was 96%. Basic metabolic panel (BMP) on arrival showed sodium 138, potassium 7.5, chloride 115, bicarbonate 18, BUN 42, creatinine is 1.7, calcium 0.4. A1c 6.8. Lipase 195. TSH 2.5. Cortisol 14.7. Repeat BMP after IV fluid hydration today in the afternoon showed sodium 139, potassium 5.1, chloride 110, bicarbonate 21, BUN 26, creatinine is 1.1 and glucose 145, calcium is 9.9. MICROBIOLOGY: GI panel is negative. Blood and urine cultures are pending. IMAGING STUDIES: CAT scan of the abdomen and pelvis on arrival showed no acute abnormalities. Chest x-ray was done yesterday which showed no acute issues. CURRENT INPATIENT MEDICATIONS: Patient's medications were all reviewed by me. She was given calcium gluconate 1 gram yesterday on arrival because of hyperkalemia. She was given IV normal saline boluses. She was also on sodium bicarbonate drip at 150 mL an hour, which was stopped today morning. She was given a dose of zoledronic acid 3 mg IV times one dose. She was also getting nebulizations. She is on allopurinol 300 mg by mouth twice a day, Lipitor 20 mg by mouth daily. Patient was on calcitonin nasal spray, which I have stopped now. She is on gabapentin 300 mg by mouth daily. She was given GI cocktail today morning. She is on insulin sliding scale. She is on levothyroxine 50 mcg by mouth daily. Protonix 40 mg IV one dose. She was given Veltassa 8.4 grams by mouth, two doses yesterday and two doses today morning. HOME MEDICATIONS: Include: - allopurinol 300 mg by mouth twice a day - amlodipine 5 mg by mouth daily - atenolol 200 mg by mouth twice a day - Lipitor 20 mg daily - calcium carbonate 600 mg once capsule daily - Trulicity 1.5 mg subcutaneous once a week - Lasix 40 mg by mouth daily - gabapentin 300 mg by mouth daily - levothyroxine 50 mcg by mouth daily - lisinopril 80 mg daily - metformin 1 gram by mouth twice a day - multivitamin - potassium chloride 120 mEq by mouth twice a day - spironolactone 50 mg by mouth daily ASSESSMENT: A 63-year-old female with history of diabetes mellitus type 2, hypertension and history of congestive heart failure (CHF) with preserved ejection fraction chronically on angiotensin-converting enzyme (RUTH) inhibitor, metformin, diuretics, potassium and calcium supplements, admitted this time after diarrhea with acute renal failure, hypercalcemia and hypokalemia. PLAN: 1. Acute renal failure. It is most likely secondary to dehydration, volume depletion secondary to diarrhea and use of RUTH inhibitors and diuretics at home. Diuretics were held. Patient was adequately hydrated. Renal function is improving, close to her baseline. 2 Hyperkalemia. It was secondary to use of high-dose potassium, spironolactone and RUTH inhibitors at home. Patient was given a Veltassa yesterday. She was also given IV fluid hydration. Potassium is nicely improved within the normal range. Avoid further use of potassium supplements. Patient does report that she needs high dose of potassium because of chronic hypokalemia. I have ordered the urine electrolytes. She has never seen nephrology before. Renin and aldosterone levels are also pending. 3 History of hypertension. The patient was hypotensive yesterday. RUTH inhibitors and diuretics are obviously on hold because of renal failure. Currently, she is not on any antihypertensives. 4. Metabolic acidoses. Patient came in with metabolic acidosis secondary to acute renal failure, diarrhea and use of metformin. She was given bicarbonate fluids yesterday. Serum bicarbonate level has nicely improved. Bicarbonate fluids have been stopped now. 5. Hypercalcemia. Patient was dehydrated on arrival. She was taking calcium supplements. I do not believe the patient has any malignancy; however, serum and urine protein electrophoresis results are still pending. CT abdomen and pelvis did not did not show any malignancy and chest x-ray was also clear. 6. Diabetes mellitus type 2. Patient takes her metformin and Trulicity at home. I would avoid using metformin at this point since she is recovering from renal failure. Continue insulin sliding scale at this point. 7. Congestive heart failure with preserved ejection fraction. Patient takes atenolol, amlodipine and lisinopril at home. I do not see any evidence of lower extremity edema. Since she actually came in dehydrated, avoid use of diuretics at this point. Low-dose RUTH inhibitor will be restarted once renal function improves back to baseline. Thank you for involving me in the care of this patient. I shall be happy to follow the patient along with you tomorrow morning. Total critical Care time spent 40 minutes excluding procedures. MTDD
[2019-03-04] MEDS ORDERED: SLF 3 ML SYR IV PRN (15:30)
[2019-03-04] MEDS: GABAPENTIN 300 MG CAP PO SCH (17:20)
[2019-03-04 17:21] LABS: CALCIUM,RANDOM URINE 8.8 MG/DL
[2019-03-04 19:01] LABS: CALCIUM LEVEL 9.3 MG/DL (8.8-10.2); CREATININE FOR GFR 1.44 MG/DL (0.55-1.30); GLOMERULAR FILTRATION RATE 39.3 (>45); POTASSIUM SERUM 5.7 MEQ/L (3.5-5.1)
[2019-03-04] MEDS: SLF 3 ML SYR IV SCH (22:25)
[2019-03-04 22:39] LABS: CALCIUM LEVEL 9.6 MG/DL (8.8-10.2); CREATININE FOR GFR 1.35 MG/DL (0.55-1.30); GLOMERULAR FILTRATION RATE 42.3 (>45); POTASSIUM SERUM 5.1 MEQ/L (3.5-5.1)
[2019-03-04] MEDS ORDERED: PATIROMER SORBITEX CALCIUM 8.4 GM POWDER PACKET (VELTASSA) PO ONE (23:00)
[2019-03-05 06:00] VITALS: BP 118/54
[2019-03-05 06:23] LABS: HEMOGLOBIN 11.7 g/dl (12.0-15.5); MEAN CORPUSCULAR HEMOGLOBIN 31.5 pg (27.0-33.0); MEAN CORPUSCULAR HGB CONC 33.4 g/dl (32.0-36.5); MEAN CORPUSCULAR VOLUME 94.1 fl (80.0-96.0); PLATELET COUNT, AUTOMATED 104 10^3/uL (150-450); RED BLOOD COUNT 3.72 10^6/uL (4.00-5.40); WHITE BLOOD COUNT 5.1 10^3/uL (4.0-10.0)
[2019-03-05] MEDS: LEVOTHYROXINE 50MCG TABLET (0.05MG) PO SCH (06:30)
[2019-03-05] MEDS: SLF 3 ML SYR IV SCH (06:31)
[2019-03-05 06:47] LABS: CALCIUM LEVEL 9.4 MG/DL (8.8-10.2); CREATININE FOR GFR 1.21 MG/DL (0.55-1.30); MAGNESIUM LEVEL 1.3 MG/DL (1.8-2.4); POTASSIUM SERUM 4.3 MEQ/L (3.5-5.1)
[2019-03-05] MEDS ORDERED: FLUBLOK(EGG FREE)(QUAD)INFLUENZA VACC 0.5ML SYRINGE (90682)18YRS&OLDER IM ONE (09:00)
--- NOTE | 2019-03-05 09:01 | IPNPDOC ---
Date Seen The patient was seen on 03/05/19. Progress Note SUBJECTIVE: awaiting upep and spep. passed HSE. lytes normalized yesterday. pt's abdominal pain has subsided. she is tolerating her diet well. mg 1.3 supplemented. PHYSICAL EXAMINATION: VITALS PLS SEE BELOW General: Patient is awake, alert, oriented times three, able to provide much of the history. She is anicteric. No respiratory distress, able to speak in full sentences. Pupils are round and reactive to light and accommodation. Extraocular muscles are intact. Normocephalic, atraumatic. No jugular venous distention, thyromegaly or cervical lymphadenopathy. Dry mucous membranes. Lungs are diminished but clear to auscultation. There is no wheezing, rales, or rhonchi. Heart: S1, S2, sinus bradycardia. No murmurs, rubs, or gallops. Abdomen: Obese, soft, nontender No rebound, guarding. Positive bowel sounds times four quadrants. Extremities: No cyanosis, clubbing, or any pitting edema. LABORATORY DATA ON ADMISSION: White count 10.3, hemoglobin 15, hematocrit 46, platelet count 208. Sodium 138, potassium 7.5, bicarbonate 18, chloride 115, BUN 42, creatinine 1.72, glucose of 139, lactic acid is pending. Calcium is 12.4. Total bilirubin is 0.5, direct bilirubin is 0.1. AST is 34, ALT is 69, alkaline phosphatase of 143. Total protein of 8.9, albumin of 4.3, albumin-globulin ratio of 1.93. PLS SEE BELOW Microbiology: Urinalysis is pending. Blood culture is pending. Chest x-ray, 03/03/2019: No acute disease. CT abdomen and pelvis: No acute abnormalities. No evidence of appendicitis. Large left adrenal myolipoma, unchanged from prior exam. Small left inguinal hernia containing fat. Gallbladder ultrasound: Gallbladder sludge and fatty liver and hepatomegaly. ASSESSMENT AND PLAN: This is a 63-year-old female with a past medical history significant for hypertriglyceridemia, hypertension, morbid obesity, type 2 diabetes, hypothyroidism, congestive heart failure with preserved ejection fraction, mild left atrial enlargement, mild tricuspid regurgitation, gout, chronic kidney disease stage III, chronic hypokalemia, presents to the emergency room after seeing her primary care physician at the office, Marine Ceja at the [facility] with complaints of weakness and abdominal pain. Patient was in her usual state of health until about a week ago when she developed upper respiratory infection with cough, cold symptoms, nasal congestion and runny nose, at which point it progressed to nausea and diarrhea, up to about 10 times daily. She had no fever but had some chills and felt cold, prompting her to see her primary care physician, who advised her that this was a viral infection. Patient has been taking 12 tablets of potassium supplements for the past 1 year. She gets serum potassium checked every 2-3 months, which have been stable, according to her physician. No changes have been made. When she was seen today at her doctor's office, the patient complained of pain at the top of her stomach, which was radiating to her chest, felt like heartburn, which has worsened in the past 2 days, accompanied with some nausea without vomiting and weakness, especially when she has been sitting for about 20 minutes, difficulty ambulating and using her hands to get up from a sitting or lying down position, and requiring assistance from her . Patient was exposed to her brother who had upper respiratory infection (URI) symptoms for the past week. She had a decrease in oral intake due to her upset stomach, felt dizzy and lightheaded without any palpitations. Her provider encouraged her to continue with eating applesauce, soups and peanut butter at home. She continued to take her lisinopril, potassium supplements and Lasix at home. Due to significant weakness and now with complaints of chest pains, the patient was encouraged to come to the emergency room straight from her doctor's office. In the emergency room (ER), she was found to have hyperkalemia with a potassium level of 7.5, hypercalcemia 12, creatinine of 1.7 with baseline creatinine, which is normal at 0.98 from 2017. Patient was afebrile but had normal blood pressure 134 but decreased to 75/43 within 3 hours. Hospitalist was called to admit for hyperkalemia, acute kidney injury, and metabolic acidosis. Acute hyperkalemia. Most likely related to continued lisinopril use as well as potassium supplementation. At this time, the patient's lisinopril will be discontinued. She has been given Veltassa q4h as well a sodium bicarbonate drip with every 4 hour metabolic panel, as well as ionized calcium check while the patient is on bicarbonate drip. She has been admitted to the intensive care unit (ICU) for critical patient monitoring and telemetry. Her EKG on admission shows sinus bradycardia, ventricular rate of 54, [place] interval of 151, QRS of 95, QT of 389, QTc of 376. Hypercalcemia with renal failure . check PTH, phosphate, vitamin D,SPEP, UPEP, urinary calcium. telemetry monitoring. calcitonin, zolendronate. nephrology consult. CXR was clear. Acute metabolic acidosis in the setting of renal failure and acute kidney injury with a creatinine of 1.72. Patient will be receiving bicarbonate drip and BMP every 4 hours for adjustment of IV fluids. Check urine electrolytes . Hypotension. Patient did arrive with normal blood pressure of 134/69, currently in the 80s systolic. Patient did receive IV fluids, and she was taking Lasix, lisinopril ,beta pushpa as an outpatient prior to coming in with recent history of hypovolemia from diarrhea. Patient had been supplemented with normal saline IV boluses and bicarbonate drip for now. Blood cultures, urinalysis (UA) have been obtained. Chest x-ray has no acute disease. CT abdomen unremarkable . No empiric antibiotics for now. If concerns for adrenal insufficiency were to occur, will continue with IV fluids and determine further workup after that time. Type 2 diabetes . clears diet for now ue to patient complaints of persistent diarrhea, check a gastrointestinal (GI) panel. Subcu sliding scale with coverage with fingersticks before food and nightly. Patient will be monitored in the ICU for now. History of Hypertension. Will hold all antihypertensive medications in light ofcurrent low blood pressure. Acute renal failure in the setting of hypovolemia from diarrhea as well as continued lisinopril use, as well as diuretic use. Will replenish patient's fluids at this time. Monitor for any signs of infection. Check UA, chest x-ray. Renally dose all medications and no signs of obstruction on the CT abdomen of the kidneys. Due to hypercalcemia, will r/o multiple myeloma. check upep,spep Obesity. Complicating care. Congestive heart failure (CHF) with preserved ejection fraction. Will monitor patient's respiratory status. Currently with clear lungs and chest x-ray has no acute disease. Abnormal EKG with sinus bradycardia in the setting of severe hypercalcemia and recent use of beta blockers. if persistent, may need glucagon. Telemetry monitoring for now. The patient has borderline prolonged QTc. Will supplement magnesium if low. Deep vein thrombosis (DVT) prophylaxis with compression stockings. Muscle weakness secondary to electrolyte abnormalities and significant metabolic acidosis. correct electrolytes. Physical therapy (PT) will be consulted. CODE STATUS: FULL CODE. disposition : dc home today if cleared by nephrology. A-FIB/CHADSVASC A-FIB History Current/History of A-Fib/PAF?: No Current Oral Anticoagulant The: No VS, I&O, 24H, Fishbone Vital Signs/I&O Vital Signs Date Time Temp Pulse Resp B/P (MAP) Pulse Ox O2 Delivery O2 Flow Rate FiO2 03/04/19 22:00 98.1 98 15 131/58 (82) 94 03/03/19 13:11 Room Air I&O- Last 24 Hours up to 6 AM 03/05/19 06:00 Intake Total 2804 ml Output Total 1800 ml Balance 1004 ml Laboratory Data 24H LABS Laboratory Tests 2 03/04/19 09:44: Anion Gap 6L, Glomerular Filtration Rate 45.0, Blood Urea Nitrogen 27H, Creatinine 1.28, Sodium Level 139, Potassium Level 4.9, Chloride Level 109H, Carbon Dioxide Level 24, Calcium Level 9.7, Whole Blood Ionized Calcium 5.3 03/04/19 12:02: Anion Gap 8, Glomerular Filtration Rate 49.4, Blood Urea Nitrogen 26H, Creatinine 1.18, Sodium Level 139, Potassium Level 5.1, Chloride Level 110H, Carbon Dioxide Level 21, Calcium Level 9.9, Whole Blood Ionized Calcium 5.2 03/04/19 12:43: Urine Random Creatinine 20.4, Urine Random Sodium 50, Urine Random Potassium 16.9, Urine Random Chloride 61, Urine Random Calcium 8.8 03/04/19 18:14: Anion Gap 4L, Glomerular Filtration Rate 39.3L, Blood Urea Nitrogen 30H, Creatinine 1.44H, Sodium Level 136, Potassium Level 5.7H, Chloride Level 108H, Carbon Dioxide Level 24, Calcium Level 9.3, Whole Blood Ionized Calcium 5.0 03/04/19 22:06: Anion Gap 7L, Glomerular Filtration Rate 42.3L, Blood Urea Nitrogen 26H, Creatinine 1.35H, Sodium Level 139, Potassium Level 5.1, Chloride Level 110H, Carbon Dioxide Level 22, Calcium Level 9.6 03/04/19 22:27: Bedside Glucose (Misc Panel) 159H 03/05/19 06:00: CBC/BMP Laboratory Tests 03/04/19 09:44 Calcium Level 9.7 03/04/19 12:02 Calcium Level 9.9 03/04/19 18:14 Calcium Level 9.3 03/04/19 22:06 Calcium Level 9.6 Microbiology Microbiology 03/03/19 Blood Culture - Preliminary, Resulted No growth after 24 hours . All specim... 03/04/19 Gastrointestinal Tract Panel (PCR) - Final, Complete 03/03/19 MRSA Screen - Final, Complete Staph.aureus Methicillin Resis 03/03/19 Respiratory Virus Panel (PCR) ([facility]) - Final, Complete 03/03/19 Urine Culture - Final, Complete SVITLANA HUYNH MD March 05, 2019 06:18
--- NOTE | 2019-03-05 09:05 | DS.PDOC ---
Discharge Summary General Date of Admission March 03, 2019 at 17:14 Date of Discharge 2018 Discharge Summary CONSULTANTS: NEPHROLOGY DR. ALVARADO DISCHARGE DIAGNOSES: HYPERKALEMIA HYPERCALCEMIA ACUTE RENAL FAILURE HYPOMAGNESEMIA HTN HYPERTRIGLYCERIDEMIA MORBID OBESITY TYPE 2 DM HYPOTHYROIDISM CHF W PRESERVED EF MILD TR GOUT CKD3 HISTORY OF CHRONIC HYPOKALEMIA HYPOTENSION DUE TO MEDS AND DEHYDRATION HYPOVOLEMIA DUE TO DEHYDRATION AND DECREASED ORAL INTAKE H/O DIARRHEA AT HOME DISCHARGE MEDS: PLEASE SEE BELOW DISCHARGE INSTRUCTIONS: REPEAT MP,MG, IONIZED CALCIUM AND CALL/FAX RESULTS TO PRESSURE [employer]PERATOR DR. JENNY FLORES W DR ALVARADO , [facility] TEST [facility]PERATOR WITHIN 5 DAYS OF DISCHARGE FU W PCP W/I 5 DAYS OF DISCHARGE HISTORY OF PRESENTING ILLNESS: This is a 63-year-old female with a past medical history significant for hypertriglyceridemia, hypertension, morbid obesity, type 2 diabetes, hypothyroidism, congestive heart failure with preserved ejection fraction, mild left atrial enlargement, mild tricuspid regurgitation, gout, chronic kidney disease stage III, chronic hypokalemia, presents to the emergency room after seeing her primary care physician at the office, Marine Ceja at the [facility] with complaints of weakness and abdominal pain. Patient was in her usual state of health until about a week ago when she developed upper respiratory infection with cough, cold symptoms, nasal congestion and runny nose, at which point it progressed to nausea and diarrhea, up to about 10 times daily. She had no fever but had some chills and felt cold, prompting her to see her primary care physician, who advised her that this was a viral infection. Patient has been taking 12 tablets of potassium supplements for the past 1 year. She gets serum potassium checked every 2-3 months, which have been stable, according to her physician. No changes have been made. When she was seen today at her doc tor's office, the patient complained of pain at the top of her stomach, which was radiating to her chest, felt like heartburn, which has worsened in the past 2 days, accompanied with some nausea without vomiting and weakness, especially when she has been sitting for about 20 minutes, difficulty ambulating and using her hands to get up from a sitting or lying down position, and requiring assistance from her . Patient was exposed to her brother who had upper respiratory infection (URI) symptoms for the past week. She had a decrease in oral intake due to her upset stomach, felt dizzy and lightheaded without any palpitations. Her provider encouraged her to continue with eating applesauce, soups and peanut butter at home. She continued to take her lisinopril, potassium supplements and Lasix at home. Due to significant weakness and now with complaints of chest pains, the patient was encouraged to come to the emergency room straight from her doctor's office. In the emergency room (ER), she was found to have hyperkalemia with a potassium level of 7.5, hypercalcemia 12, creatinine of 1.7 with baseline creatinine, which is normal at 0.98 from 2017. Patient was afebrile but had normal blood pressure 134 but decreased to 75/43 within 3 hours. Hospitalist was called to admit for hyperkalemia, acute kidney injury, and metabolic acidosis. HOSPITAL COURSE: Acute hyperkalemia. Most likely related to continued lisinopril use as well as potassium supplementation. At this time, the patient's lisinopril will be discontinued. She has been given Veltassa q4h as well a sodium bicarbonate drip with every 4 hour metabolic panel, as well as ionized calcium check while the patient is on bicarbonate drip. She has been admitted to the intensive care unit (ICU) for critical patient monitoring and telemetry. Her EKG on admission shows sinus bradycardia, ventricular rate of 54, [place] interval of 151, QRS of 95, QT of 389, QTc of 376. Hypercalcemia with renal failure . check PTH, phosphate, vitamin D,SPEP, UPEP, urinary calcium. telemetry monitoring. calcitonin, zolendronate. nephrology consult. CXR was clear. Acute metabolic acidosis in the setting of renal failure and acute kidney injury with a creatinine of 1.72. Patient will be receiving bicarbonate drip and BMP every 4 hours for adjustment of IV fluids. Check urine electrolytes . Hypotension. Patient did arrive with normal blood pressure of 134/69, currently in the 80s systolic. Patient did receive IV fluids, and she was taking Lasix, lisinopril ,beta pushpa as an outpatient prior to coming in with recent history of hypovolemia from diarrhea. Patient had been supplemented with normal saline IV boluses and bicarbonate drip for now. Blood cultures, urinalysis (UA) have been obtained. Chest x-ray has no acute disease. CT abdomen unremarkable . No empiric antibiotics for now. If concerns for adrenal insufficiency were to occur, will continue with IV fluids and determine further workup after that time. Type 2 diabetes . clears diet for now ue to patient complaints of persistent diarrhea, check a gastrointestinal (GI) panel. Subcu sliding scale with coverage with fingersticks before food and nightly. Patient will be monitored in the ICU for now. History of Hypertension. Will hold all antihypertensive medications in light ofcurrent low blood pressure. Acute renal failure in the setting of hypovolemia from diarrhea as well as continued lisinopril use, as well as diuretic use. Will replenish patient's fluids at this time. Monitor for any signs of infection. Check UA, chest x-ray. Renally dose all medications and no signs of obstruction on the CT abdomen of the kidneys. Due to hypercalcemia, will r/o multiple myeloma. check upep,spep Obesity. Complicating care. Congestive heart failure (CHF) with preserved ejection fraction. Will monitor patient's respiratory status. Currently with clear lungs and chest x-ray has no acute disease. Abnormal EKG with sinus bradycardia in the setting of severe hypercalcemia and recent use of beta blockers. if persistent, may need glucagon. Telemetry monitoring for now. The patient has borderline prolonged QTc. Will supplement magnesium if low. Deep vein thrombosis (DVT) prophylaxis with compression stockings. Muscle weakness secondary to electrolyte abnormalities and significant metabolic acidosis. correct electrolytes. Physical therapy (PT) will be consulted. CODE STATUS: FULL CODE. disposition : in home today if cleared by nephrology. PHYSICAL EXAMINATION: VITALS PLS SEE BELOW General: Patient is awake, alert, oriented times three, able to provide much of the history. She is anicteric. No respiratory distress, able to speak in full sentences. Pupils are round and reactive to light and accommodation. Extraocular muscles are intact. Normocephalic, atraumatic. No jugular venous distention, thyromegaly or cervical lymphadenopathy. Dry mucous membranes. Lungs are diminished but clear to auscultation. There is no wheezing, rales, or rhonchi. Heart: S1, S2, sinus bradycardia. No murmurs, rubs, or gallops. Abdomen: Obese, soft, nontender No rebound, guarding. Positive bowel sounds times four quadrants. Extremities: No cyanosis, clubbing, or any pitting edema. LABORATORY DATA ON ADMISSION: White count 10.3, hemoglobin 15, hematocrit 46, platelet count 208. Sodium 138, potassium 7.5, bicarbonate 18, chloride 115, BUN 42, creatinine 1.72, glucose of 139, lactic acid is pending. Calcium is 12.4. Total bilirubin is 0.5, direct bilirubin is 0.1. AST is 34, ALT is 69, alkaline phosphatase of 143. Total protein of 8.9, albumin of 4.3, albumin-globulin ratio of 1.93. LABS ON DISCHARGE: PLS SEE BELOW Microbiology: Urinalysis is pending. Blood culture is pending. Chest x-ray, 03/03/2019: No acute disease. CT abdomen and pelvis: No acute abnormalities. No evidence of appendicitis. Large left adrenal myolipoma, unchanged from prior exam. Small left inguinal hernia containing fat. Gallbladder ultrasound: Gallbladder sludge and fatty liver and hepatomegaly. TIME SPENT ON DISCHARGE: 30 MIN Vital Signs/I&Os Vital Signs Date Time Temp Pulse Resp B/P (MAP) Pulse Ox O2 Delivery O2 Flow Rate FiO2 03/05/19 06:00 98.2 102 18 118/54 (75) 92 03/03/19 13:11 Room Air I&O- Last 24 Hours up to 6 AM 03/05/19 06:00 Intake Total 2804 ml Output Total 2600 ml Balance 204 ml Laboratory Data Labs 24H Laboratory Tests 2 03/04/19 09:44: Anion Gap 6L, Glomerular Filtration Rate 45.0, Blood Urea Nitrogen 27H, Creatinine 1.28, Sodium Level 139, Potassium Level 4.9, Chloride Level 109H, Carbon Dioxide Level 24, Calcium Level 9.7, Whole Blood Ionized Calcium 5.3 03/04/19 12:02: Anion Gap 8, Glomerular Filtration Rate 49.4, Blood Urea Nitrogen 26H, Creatinine 1.18, Sodium Level 139, Potassium Level 5.1, Chloride Level 110H, Carbon Dioxide Level 21, Calcium Level 9.9, Whole Blood Ionized Calcium 5.2 03/04/19 12:43: Urine Random Creatinine 20.4, Urine Random Sodium 50, Urine Random Potassium 16.9, Urine Random Chloride 61, Urine Random Calcium 8.8 03/04/19 18:14: Anion Gap 4L, Glomerular Filtration Rate 39.3L, Blood Urea Nitrogen 30H, Creatinine 1.44H, Sodium Level 136, Potassium Level 5.7H, Chloride Level 108H, Carbon Dioxide Level 24, Calcium Level 9.3, Whole Blood Ionized Calcium 5.0 03/04/19 22:06: Anion Gap 7L, Glomerular Filtration Rate 42.3L, Blood Urea Nitrogen 26H, C reatinine 1.35H, Sodium Level 139, Potassium Level 5.1, Chloride Level 110H, Carbon Dioxide Level 22, Calcium Level 9.6 03/04/19 22:27: Bedside Glucose (Misc Panel) 159H 03/05/19 06:00: Anion Gap 7L, Glomerular Filtration Rate 48.0, Blood Urea Nitrogen 19H, Cre atinine 1.21, Sodium Level 137, Potassium Level 4.3, Chloride Level 108H, Carbon Dioxide Level 22, Calcium Level 9.4, Nucleated Red Blood Cells % (auto) 0.0, Magnesium Level 1.3L CBC/BMP Laboratory Tests 03/04/19 09:44 Calcium Level 9.7 03/04/19 12:02 Calcium Level 9.9 03/04/19 18:14 Calcium Level 9.3 03/04/19 22:06 Calcium Level 9.6 03/05/19 06:00 Red Blood Count 3.72 L, Mean Corpuscular Volume 94.1, Mean Corpuscular Hemoglobin 31.5, Mean Corpuscular Hemoglobin Concent 33.4, Red Cell Distribution Width 13.8, Calcium Level 9.4 FSBS Laboratory Tests Test 03/04/19 22:27 Range/Units Bedside Glucose (Misc Panel) 159 80-115 MG/DL Microbiology Microbiology 03/03/19 Blood Culture - Preliminary, Resulted No growth after 24 hours . All specim... 03/04/19 Gastrointestinal Tract Panel (PCR) - Final, Complete 03/03/19 MRSA Screen - Final, Complete Staph.aureus Methicillin Resis 03/03/19 Respiratory Virus Panel (PCR) ([facility]) - Final, Complete 03/03/19 Urine Culture - Final, Complete Discharge Medications Scheduled Allopurinol (Zyloprim) 300 Mg Tab, 300 MG PO BID, (Reported) Amlodipine Besylate (Amlodipine Besylate) 5 Mg Tab, 5 MG PO QPM, (Reported) TAKES AT 1800 Atenolol (Atenolol) 100 Mg Tablet, 200 MG PO BID, (Reported) Atorvastatin Calcium (Atorvastatin Calcium) 20 Mg Tab, 20 MG PO DAILY, (Reported) Calcium Carbonate/Vitamin D3 (Calcium 600 + Vit D 400 Softgl) 1 Each Capsule, 1 CAP PO DAILY, (Reported) Dulaglutide (Trulicity) 1.5 Mg/0.5 Ml Inj, 1.5 MG SC QWEEK, (Reported) Furosemide (Lasix) 40 Mg Tab, 40 MG PO DAILY, (Reported) Gabapentin (Gabapentin) 300 Mg Capsule, 300 MG PO QPM, (Reported) TAKES AT 1800 Levothyroxine Sodium (Levothyroxine Sodium) 50 Mcg Tab, 50 MCG PO DAILY, (Reported) Lisinopril (Lisinopril) 40 Mg Tab, 80 MG PO QPM, (Reported) TAKES AT 1800 Metformin HCl (Metformin HCl) 1,000 Mg Tab, 1,000 MG PO BID, (Reported) Multivitamins (Thera M Plus Tablet) 1 Each Tablet, 1 TAB PO DAILY, (Reported) Potassium Chloride (Potassium Chloride) 20 Meq Tab.er.prt, 120 MEQ PO BID, (Reported) Spironolactone (Spironolactone) 50 Mg Tablet, 50 MG PO DAILY, (Reported) Allergies Coded Allergies: No Known Allergies (Unverified , 05/28/17) SVITLANA HUYNH MD March 05, 2019 09:05
[2019-03-05] MEDS ORDERED: NORV5TAB PO (09:11)
[2019-03-05] MEDS: ALLOPURINOL 300 MG TAB PO SCH (10:12)
[2019-03-05] MEDS: ATORVASTATIN 20 MG TAB PO SCH (10:12)
[2019-03-05] MEDS: MAG SULF 1GM/100ML (MAG RUN) 1 GM in APPROPRIATE DILUENT 1 EA IV SCH ×2 (10:13→11:46)
--- NOTE | 2019-03-06 17:40 | IPN ---
DATE: 03/05/2019 SUBJECTIVE: The patient was seen and examined at the bedside today morning. She is afebrile, hemodynamically stable. Her electrolyte levels are within the acceptable range. Renal function has improved close to baseline. Creatinine is down to 1.2. Blood pressures are within the acceptable range. The patient reports that she is getting ready to be discharged today. OBJECTIVE: Vital signs: Temperature is 98.2 degrees Fahrenheit, blood pressure 118/54, pulse is 102, respiratory of 18, saturating 92% on room air. Intake and output: Urine output recorded is 1.9 liters yesterday and 1.2 liters so far today since overnight. Weight on the bed scale is 102.9 kg. PHYSICAL EXAMINATION General: The patient is awake, alert, oriented times three. Sitting up in the bed in no apparent distress. Head and neck exam: Extraocular muscles intact. Pupils equally round and reactive to light. Mucous membranes are moist. Neck is supple. There is no jugular venous distention (JVD). Cardiovascular: S1, S2. Regular rate. No edema of the bilateral lower extremities. Respiratory: Chest is clear to auscultation bilaterally. Bilateral equal air entry. No rales or rhonchi. Abdomen: Soft, obese, positive bowel sounds. Nontender. No organomegaly. Musculoskeletal: No clubbing or cyanosis. Pulses are 2+. Central nervous system ([employer]): No focal deficit. Power is 5/5 in all extremities. Skin: No rashes or ulcers. LABORATORY REVIEW: CBC showed WBC of 5.1, hemoglobin 11.7, platelets of 104. Urine random creatinine was 20.4. Random sodium was 50. Random potassium of 16.9, chloride was 61 and calcium of 8.8. BMP done this morning showed sodium 137, potassium 4.3, chloride 108, bicarbonate 22, BUN 19, creatinine is 1.2, calcium 9.4, magnesium is 1.3. CURRENT INPATIENT MEDICATIONS: The patient's medications were all reviewed by me. She is being given IV magnesium sulfate this morning. She was also given a dose of influenza vaccine this morning. She was given a dose of Veltassa 8.4 grams by mouth times one dose yesterday. ASSESSMENT/PLAN: 1. Acute renal failure superimposed on chronic kidney disease, most likely the patient has a baseline chronic kidney disease stage III, creatinine has improved to 1.2, which is likely have baseline. Avoid use of RUTH inhibitors or angiotensin receptor blockers at this point. She will need to follow up with nephrology as outpatient. 2. Hyperkalemia. Potassium level is improved to normal. It is most likely related to dehydration, acute renal failure, acidosis, use of RUTH inhibitors and spironolactone at home. Potassium is better. No need of diuretics or potassium supplementation at this point. On discharge, the patient will be evaluated as outpatient for further need to use diuretics of potassium supplements as needed. 3. History of hypertension. Patient's blood pressures are acceptable. Continue to hold antihypertensives and follow up in the office 4. Hypercalcemia. Calcium level has improved to normal now. 5. Hypomagnesemia. The patient was already given magnesium sulfate IV today morning. 6. Diabetes mellitus type 2. The patient was using Trulicity and metformin at home. She just recovered from renal failure. I would avoid using metformin. If needed, the patient can be given sulfanuria. 7. Congestive heart failure with preserved ejection fraction. The patient was taking atenolol, amlodipine and Lisinopril at home; however, all of these medications are on hold because of soft blood pressure. If needed, the patient can be started on a low dose of beta blockers, avoid use of RUTH inhibitors or angiotensin receptor blockers. DISPOSITION: It is okay to discharge the patient from nephrology standpoint. She will need to follow up with nephrology within 2 weeks of discharge from the hospital.
== END 2019-03-05 13:09 | disposition home or self-care (01) | DRG 641 ==
LOC: M ED 12:58 → EDBD 12:58 → M ED INP 17:14 → M ICU 19:10 → M MSPAV 03-04 15:03
PROVIDERS: ADMIT General Practice; ATTEND General Practice
DX: E87.5 Hyperkalemia (principal); N17.9 Acute kidney failure, unspecified; I13.0 Hypertensive heart and chronic kidney disease with heart failure and stage 1 through stage 4 chronic kidney disease, or unspecified chronic kidney disease; I50.32 Chronic diastolic (congestive) heart failure; E87.2 Acidosis; E03.9 Hypothyroidism, unspecified; E83.52 Hypercalcemia; E83.42 Hypomagnesemia; E66.01 Morbid (severe) obesity due to excess calories; E11.9 Type 2 diabetes mellitus without complications; M10.9 Gout, unspecified; N18.3 Chronic kidney disease, stage 3 (moderate); I36.0 Nonrheumatic tricuspid (valve) stenosis; E86.0 Dehydration; I95.9 Hypotension, unspecified; E86.1 Hypovolemia; Z79.899 Other long term (current) drug therapy

== ENCOUNTER → 2019-03-06 | Outpatient (CLI) | payer OTHER ==
[~2019-03-06] MED LIST changes: +CALCCAP4 PO; +GABA-843 PO; +NORV5TAB PO; +POTA20TA6 PO; +SPIR50TA4 PO; +VITMTA PO
[2019-03-06 13:22] LABS: IONIZED CALCIUM 4.7 MG/DL (4.5-5.3)
[2019-03-06 13:49] LABS: CALCIUM LEVEL 8.5 MG/DL (8.8-10.2); CREATININE FOR GFR 1.25 MG/DL (0.55-1.30); GLOMERULAR FILTRATION RATE 46.2 (>45); MAGNESIUM LEVEL 1.7 MG/DL (1.8-2.4)
== END ==
LOC: M LAB 12:46
PROVIDERS: ATTEND General Practice
DX: E87.5 Hyperkalemia (principal)

== ENCOUNTER → 2019-03-07 | Outpatient (CLI) | payer OTHER ==
[2019-03-07 10:21] LABS: IONIZED CALCIUM 4.8 MG/DL (4.5-5.3)
[2019-03-07 10:57] LABS: CALCIUM LEVEL 8.8 MG/DL (8.8-10.2); CREATININE FOR GFR 1.05 MG/DL (0.55-1.30); GLOMERULAR FILTRATION RATE 56.5 (>45); MAGNESIUM LEVEL 1.9 MG/DL (1.8-2.4)
== END ==
LOC: M LAB 09:48
PROVIDERS: ATTEND General Practice
DX: N17.9 Acute kidney failure, unspecified (principal); E83.52 Hypercalcemia

== ENCOUNTER → 2019-03-08 | Outpatient (CLI) | payer OTHER ==
[2019-03-08 12:56] LABS: IONIZED CALCIUM 4.7 MG/DL (4.5-5.3)
[2019-03-08 15:02] LABS: BLOOD UREA NITROGEN 8 MG/DL (7-18); CALCIUM LEVEL 8.1 MG/DL (8.8-10.2); CARBON DIOXIDE LEVEL 23 MEQ/L (21-32); CHLORIDE LEVEL 109 MEQ/L (98-107); CREATININE FOR GFR 0.96 MG/DL (0.55-1.30); GLOMERULAR FILTRATION RATE > 60.0 (>45); GLUCOSE, FASTING 109 MG/DL (70-100); MAGNESIUM LEVEL 1.9 MG/DL (1.8-2.4); POTASSIUM SERUM 4.1 MEQ/L (3.5-5.1); SODIUM LEVEL 141 MEQ/L (136-145)
== END ==
LOC: M LAB 12:31
PROVIDERS: ATTEND General Practice
DX: N17.9 Acute kidney failure, unspecified (principal); E87.5 Hyperkalemia

== ENCOUNTER → 2019-06-13 | Outpatient (CLI) | payer OTHER ==
[~2019-06-13] MED LIST changes: -INDO50CA11 PO; +INDO50CA91 PO
--- NOTE | 2019-06-13 11:21 | REPMRS ---
Patient History The patient states she had a clinical breast exam in 06/2019. Family history of breast cancer at age 65 in mother. No Hormone Replacement Therapy Digital Woman Screen Mammo: June 13, 2019 - Exam #: [id number] Bilateral CC and MLO view(s) were taken. Technologist: Arleth Pacheco Technologist Prior study comparison: June 10, 2018, bilateral digital woman screen mammo performed at [facility]. June 09, 2017, digital woman screen mammo performed at [facility]. November 22, 2014, digital woman screen mammo performed at [facility]. FINDINGS: There are scattered fibroglandular densities. There has been no change in the appearance of the mammogram from the prior studies. There is a mild amount of scattered fibroglandular density which is fairly symmetric. There is no interval development of dominant mass, architectural distortion, or grouped microcalcification suggestive of malignancy. 3-D tomosynthesis shows no additional findings. Assessment: BI-RADS/ACR category 1 mammogram. Negative Mammogram. Recommendation Routine screening mammogram of both breasts in 1 year (for women over age 40). This patient's Lifetime Breast Cancer Risk is estimated at 12.0 %. This mammogram was interpreted with the aid of an FDA-approved computer-aided dectection system. Electronically Signed By: Juan Alberto Carter MD 06/13/19 [id number]
== END ==
LOC: M WHC 08:34 → EEVIPCON 09:00
PROVIDERS: ATTEND Nurse Practitioner Women's Health
DX: Z12.31 Encounter for screening mammogram for malignant neoplasm of breast (principal); Z80.3 Family history of malignant neoplasm of breast
CPT/HCPCS: 77063; 77067; G0463

== ENCOUNTER → 2020-06-25 | Outpatient (CLI) | payer OTHER ==
[~2020-06-25] MED LIST changes: +AMLO1TAB24 PO; -AMLO5TAB6 PO
--- NOTE | 2020-06-25 17:10 | REPMRS ---
Patient History The patient states she has not had a clinical breast exam in over a year. Family history of breast cancer at age 65 in mother. No Hormone Replacement Therapy Digital Woman Screen Mammo: June 25, 2020 - Exam #: [id number] Bilateral CC and MLO view(s) were taken. Technologist: Monica Funes, Technologist Prior study comparison: June 13, 2019, bilateral digital woman screen mammo performed at [facility]. June 10, 2018, bilateral digital woman screen mammo performed at [facility]. June 09, 2017, digital woman screen mammo performed at [facility]. FINDINGS: The breast tissue is almost entirely fat. The Volpara volumetric breast density category is: A. There has been no change in the appearance of the mammogram from the prior studies. There is no interval development of dominant mass, architectural distortion, or grouped microcalcification typical of malignancy. 3-D tomosynthesis shows no additional findings. Assessment: BI-RADS/ACR category 1 mammogram. Negative Mammogram. Recommendation Routine screening mammogram of both breasts in 1 year (for women over age 40). This patient's Lifetime Breast Cancer RIsk is estimated at 11.6 %. This mammogram was interpreted with the aid of an FDA-approved computer-aided dectection system. Electronically Signed By: Juan Alberto Carter MD 06/25/20 [id number]
== END ==
LOC: M WHC 13:24
PROVIDERS: ATTEND Physician Assistant Medical
DX: Z12.31 Encounter for screening mammogram for malignant neoplasm of breast (principal)

== ENCOUNTER → 2021-05-15 | Outpatient (CLI) | payer OTHER ==
[~2021-05-15] MED LIST changes: +GABA-282 PO; -GABA-843 PO; +HYDR-3490 PO; -HYDR25TAB PO; -LISI40TA PO; +LISI40TA4 PO
--- NOTE | 2021-05-16 | REP ---
INDICATION: CHRONIC KIDNEY DISEASE COMPARISON: 11/22/2014 TECHNIQUE: Real time bolanos scale ultrasound examination using curved array transducer. FINDINGS: The bilateral kidneys are normal in contour, size, echogenicity, and reniform shape. No hydronephrosis, nephrolithiasis, cystic or renal mass lesion. 17 x 11 x 12 cm heterogeneous hyperechoic mass superior to the left kidney is consistent with benign angiomyolipoma and confirmed to be stable compared with CT dated 05/14/2015. Bladder is unremarkable. Right kidney measures 12.5 x 6.2 x 5.0 cm. Left kidney measures 10.8 x 5.0 x 5.4 cm. IMPRESSION: 1. Normal bilateral kidneys. 2. 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
== END ==
LOC: M RAD 15:15
PROVIDERS: ATTEND Physician Assistant Medical
DX: N18.9 Chronic kidney disease, unspecified (principal); D35.00 Benign neoplasm of unspecified adrenal gland

== ENCOUNTER → 2021-07-01 | Outpatient (CLI) | payer OTHER ==
--- NOTE | 2021-07-01 11:48 | REPMRS ---
Patient History The patient states she had a clinical breast exam in March 2021. Family history of breast cancer at age 65 in mother. No Hormone Replacement Therapy No breast complaints today Patient signed the MRS sheet 1st covid vaccine 01/05/21-left arm-Moderna 2nd covid vaccine 02/02/21-left arm Priors on PACS Patient Identification Verified Digital Woman Screen Mammo: July 01, 2021 - Exam #: [id number] Bilateral CC and MLO view(s) were taken. Technologist: Kirsten Mcdonough, Technologist Prior study comparison: June 25, 2020, bilateral digital woman screen mammo performed at [facility]. June 13, 2019, bilateral digital woman screen mammo performed at [facility]. June 10, 2018, bilateral digital woman screen mammo performed at [facility]. FINDINGS: There are scattered fibroglandular densities. The Volpara volumetric breast density category is:B. There has been no change in the appearance of the mammogram from the prior studies. There is a mild amount of scattered fibroglandular density which is fairly symmetric. There is no interval development of dominant mass, architectural distortion, or grouped microcalcification suggestive of malignancy. 3-D tomosynthesis shows no additional findings. Assessment: BI-RADS/ACR category 1 mammogram. Negative Mammogram. Recommendation Routine screening mammogram of both breasts in 1 year (for women over age 40). This patient's [facility] Lifetime Breast Cancer Risk is estimated at 11.1 %. This mammogram was interpreted with the aid of an FDA-approved computer-aided dectection system. Electronically Signed By: Juan Alberto Carter MD 07/01/21 1140
== END ==
LOC: M WHC 10:06
PROVIDERS: ATTEND Physician Assistant Medical
DX: Z12.31 Encounter for screening mammogram for malignant neoplasm of breast (principal); Z80.3 Family history of malignant neoplasm of breast

== ENCOUNTER → 2021-07-15 | Outpatient (REF) | payer OTHER ==
[2021-07-15 17:53] LABS: CORTISOL BASELINE 12.9 UG/DL (4.3-22.4)
== END ==
LOC: M LAB REF 16:42
PROVIDERS: ATTEND Internal Medicine Nephrology
DX: E87.6 Hypokalemia (principal); D44.12 Neoplasm of uncertain behavior of left adrenal gland; N18.2 Chronic kidney disease, stage 2 (mild)

== ENCOUNTER → 2021-07-17 | Outpatient (REF) | payer OTHER | LOC: M LAB REF 12:44 | PROVIDERS: ATTEND Internal Medicine Nephrology | DX: D44.12 Neoplasm of uncertain behavior of left adrenal gland (principal) ==

== ENCOUNTER → 2021-07-29 | Outpatient (REF) | payer OTHER | LOC: M LAB REF 13:06 | PROVIDERS: ATTEND Internal Medicine Nephrology | DX: N18.2 Chronic kidney disease, stage 2 (mild) (principal) ==

== ENCOUNTER → 2021-10-02 | Outpatient (REF) | payer OTHER ==
[~2021-10-02] MED LIST changes: +POTA-151 PO; -POTA20TA6 PO
== END ==
LOC: M LAB REF 12:37
PROVIDERS: ATTEND Nurse Practitioner Family
DX: N18.2 Chronic kidney disease, stage 2 (mild) (principal)

== ENCOUNTER → 2021-12-09 | Outpatient (CLI) | payer OTHER | LOC: M RAD 11:18 | PROVIDERS: ATTEND Physician Assistant Medical | DX: Z12.2 Encounter for screening for malignant neoplasm of respiratory organs (principal); Z87.891 Personal history of nicotine dependence; J84.10 Pulmonary fibrosis, unspecified ==

== ENCOUNTER → 2022-05-14 | Outpatient (CLI) | payer OTHER ==
[~2022-05-14] MED LIST changes: +GASTROGRAFIN SOLUTION 30ML (Q9963) As Ordered ONE; +ISOVUE-370 76% 100ML VIAL As Ordered ONE
== END ==
LOC: M RAD 15:02
PROVIDERS: ATTEND Nurse Practitioner Family
DX: D35.02 Benign neoplasm of left adrenal gland (principal); K76.0 Fatty (change of) liver, not elsewhere classified; N18.30 Chronic kidney disease, stage 3 unspecified
CPT/HCPCS: 74178; Q9963; Q9967

== ENCOUNTER → 2022-08-18 | Outpatient (CLI) | payer OTHER ==
[~2022-08-18] MED LIST changes: -GASTROGRAFIN SOLUTION 30ML (Q9963) As Ordered ONE; -ISOVUE-370 76% 100ML VIAL As Ordered ONE
== END ==
LOC: M WHC 08:48
PROVIDERS: ATTEND Physician Assistant Medical
DX: Z12.31 Encounter for screening mammogram for malignant neoplasm of breast (principal)

== ENCOUNTER → 2023-02-23 | Outpatient (CLI) | payer MEDICARE, OTHER | LOC: M WHC 09:51 | PROVIDERS: ATTEND Physician Assistant Medical | DX: N95.0 Postmenopausal bleeding (principal); R93.89 Abnormal findings on diagnostic imaging of other specified body structures ==

== ENCOUNTER → 2023-05-20 | Outpatient (CLI) | payer OTHER, MEDICARE ==
[~2023-05-20] MED LIST changes: +ISOVUE-370 76% 100ML VIAL As Ordered ONE
== END ==
LOC: M RAD 13:23
PROVIDERS: ATTEND Nurse Practitioner Family
DX: D44.12 Neoplasm of uncertain behavior of left adrenal gland (principal); N18.30 Chronic kidney disease, stage 3 unspecified; K76.0 Fatty (change of) liver, not elsewhere classified; K57.90 Diverticulosis of intestine, part unspecified, without perforation or abscess without bleeding; D35.02 Benign neoplasm of left adrenal gland; N20.0 Calculus of kidney
CPT/HCPCS: 74178; Q9967

== ENCOUNTER → 2023-09-08 | Outpatient (REF) | payer OTHER ==
[~2023-09-08] MED LIST changes: -ISOVUE-370 76% 100ML VIAL As Ordered ONE
[2023-09-08 19:16] LABS: AMORPHOUS SEDIMENT SMALL (NEGATIVE); BACTERIA, URINE AUTO 1+ (NEGATIVE); CALCIUM OXALATE CRYSTALS SMALL; MUCUS, URINE SMALL (NEGATIVE); RBC, URINE AUTO 5 /HPF (0-3); SQUAMOUS EPITHELIAL CELL UR AU 1 /HPF (0-6); WBC, URINE AUTO 4 /HPF (0-3)
== END ==
LOC: M LAB REF 17:17
PROVIDERS: ATTEND Nurse Practitioner Family
DX: R31.29 Other microscopic hematuria (principal)

== ENCOUNTER → 2023-10-09 | Outpatient (CLI) | payer MEDICARE, OTHER | LOC: M RAD 10:28 | PROVIDERS: ATTEND Physician Assistant Medical | DX: Z12.2 Encounter for screening for malignant neoplasm of respiratory organs (principal); Z87.891 Personal history of nicotine dependence; I25.10 Atherosclerotic heart disease of native coronary artery without angina pectoris; K74.60 Unspecified cirrhosis of liver; K76.0 Fatty (change of) liver, not elsewhere classified ==

== ENCOUNTER → 2023-12-14 | Outpatient (CLI) | payer OTHER, MEDICARE | LOC: M WHC 13:46 | PROVIDERS: ATTEND Physician Assistant Medical | DX: Z12.31 Encounter for screening mammogram for malignant neoplasm of breast (principal); M81.8 Other osteoporosis without current pathological fracture; R92.323 Mammographic fibroglandular density, bilateral breasts; M85.89 Other specified disorders of bone density and structure, multiple sites ==

== ENCOUNTER → 2025-02-06 | Outpatient (CLI) | payer OTHER ==
[~2025-02-06] MED LIST changes: +GABA-1172 PO; -GABA-282 PO
== END ==
LOC: M RAD 14:14
PROVIDERS: ATTEND Nurse Practitioner Family
DX: D44.12 Neoplasm of uncertain behavior of left adrenal gland (principal)

== ENCOUNTER → 2025-02-10 | Outpatient (CLI) | payer OTHER, MEDICARE | LOC: M WHC 13:25 | PROVIDERS: ATTEND Physician Assistant Medical | DX: Z12.31 Encounter for screening mammogram for malignant neoplasm of breast (principal); R92.313 Mammographic fatty tissue density, bilateral breasts ==